=== PATIENT | female | born 1945 | race Caucasian/White ===

== ENCOUNTER 2017-05-19 17:47 | Emergency (ER) | payer MEDICARE, OTHER ==
[~2017-05-19] VITALS: Ht 149.9 cm; Wt 54.4 kg
[~2017-05-19 17:47] MED LIST: ALEN70TA3 PO; CALC1TAB PO; CEPH-264 PO; FERR-26 PO; GLIP5TAB10 PO; Hydrocodone/Acetaminophen PO; LISI10TA2 PO; LOPE2CAP PO; METF500T9 PO; METO100T7 PO; [UNRECOGNIZED DRUG - CODE] PO
[2017-05-19 18:00] VITALS: BP 165/169
--- NOTE | 2017-05-19 19:01 | PHYS DOC ---
Past Medical History Past Medical History: Arthritis, Diabetes-Type II, High Cholesterol, Hypertension Additional Past Medical Histor: MR, osteoporosis Past Surgical History: Cholecystectomy, Hip Replacement Alcohol Use: None Drug Use: None Adult General Chief Complaint Chief Complaint: MECHANICAL FALL HPI HPI She is a pleasant 72-year-old female who sustained a head injury secondary to a fall from a seated position. Patient was at the [facility] when she went to the restroom she is normally supposed to ask for assistance when getting up she temperature rise and fell forward striking her head against the wall. There is no loss of conscious, the fall was witnessed by staff, she sustained a small laceration to the left frontal forehead. She denies any headache, neck pain, focal neurologic deficit. Patient has no nausea, no vomiting, no change in mental status. Review of Systems Review of Systems Constitutional: Denies fever or chills [] Eyes: Denies change in visual acuity, redness, or eye pain [] HENT: Denies nasal congestion or sore throat [] Respiratory: Denies cough or shortness of breath [] Cardiovascular: No additional information not addressed in HPI [] GI: Denies abdominal pain, nausea, vomiting, bloody stools or diarrhea [] : Denies dysuria or hematuria [] Musculoskeletal: Denies back pain or joint pain [] Integument: Denies rash or skin lesions she did sustain a small laceration to the [place] on the left. [] Neurologic: Denies headache, focal weakness or sensory changes [] Endocrine: Denies polyuria or polydipsia [] All other systems were reviewed and found to be within normal limits, except as documented in this note. Allergies Allergies Allergies Coded Allergies Type Severity Reaction Last Updated Verified No Known Drug Allergies 04/29/15 No Physical Exam Physical Exam Patient's vital signs demonstrate a hypertensive patient otherwise normal. Constitutional: He is thin and cachectic she is no acute distress no active breathing problems.. [] HENT: Normocephalic, as well approximated small laceration at the scalp line on the left upper forehead. It measures about 1.1 cm in length. It is shallow there is no galeal involvement, no step-offs, minimal active bleeding with no foreign body sensation. Bilateral external ears normal, oropharynx moist, no oral exudates, nose normal. Patient's TMs bilaterally have a significant amount of cerumen. There is no evidence of hemotympanum.[] Eyes: PERRLA, EOMI, conjunctiva normal, no discharge. [] Neck: Normal range of motion, no tenderness, supple, no stridor. No midline tenderness to palpation.[] Cardiovascular:Heart rate regular rhythm, no murmur [] Lungs & Thorax: Bilateral breath sounds clear to auscultation [] Abdomen: Bowel sounds normal, soft, no tenderness, no masses, no pulsatile masses. [] Skin: Warm, dry, no erythema, no rash. He has areas of contusion and multiple stages of healing. [] Back: No tenderness, Extremities: No tenderness, no cyanosis, no clubbing, ROM intact, no edema. [] Neurologic: Alert and oriented X 3, normal motor function, normal sensory function, no focal deficits noted. She has no specific complaints of tenderness to palpation over a joints. She is at baseline according to the staff at the bedside.[] Psychologic: Affect normal, judgement normal, mood normal. [] Current Patient Data Vital Signs Vital Signs Date Time Temp Pulse Resp B/P (MAP) Pulse Ox O2 Delivery O2 Flow Rate FiO2 05/19/17 17:47 98.1 72 18 165/69 (101) 100 Room Air 98.1 EKG EKG [] Radiology/Procedures Radiology/Procedures [] [facility] [address], [place] [id number] IMAGING REPORT Signed PATIENT: KOFI JEWELL ACCOUNT: [id number] : 1945 LOCATION: ER AGE: 72 SEX: F EXAM STATUS: REG ER ORD. PHYSICIAN: JOHNATHAN GEE MD REASON: fall PROCEDURE: CT HEAD WO CONTRAST CT head without contrast 05/19/2017 Clinical indication: Fall with laceration to the left for head. COMPARISON: None. TECHNIQUE: Multiple CT images of the head were obtained without contrast according to standard protocol. *One or more of the following individualized dose reduction techniques were utilized for this examination: 1. Automated exposure control. 2. Adjustment of the mA and/or kV according to patient size. 3. Use of iterative reconstruction technique. FINDINGS: There is prominence of the ventricles and subarachnoid spaces compatible with mild generalized cerebral atrophy. No acute intracranial hemorrhage or extra-axial fluid collection. No midline shift. The basal cisterns are patent. Owusu-white matter interfaces are maintained. IMPRESSION: 1. No acute intracranial hemorrhage. 2. Mild generalized cerebral atrophy. Electronically signed by: Harjit Guillen MD (05/19/2017 8:31 PM) [facility] DICTATED and SIGNED BY: HARJIT GUILLEN MD DATE: 05/19/172029 CC: JOHNATHAN GEE MD; NO PCP ~ Course & Med Decision Making Course & Med Decision Making Pertinent Labs and Imaging studies reviewed. (See chart for details) []She presents with a small laceration to the forehead sustained after falling from a seated position. I wanted to complete a head CT, patient's mentation and neurologic status are baseline according to the staff at the bedside. Patient seems to be mentating well is hungry and prefer to go home as opposed to have any studies done. At this point the plan is to treat her wound with localized wound cleansing. Patient's tetanus shot is up-to-date, patient will have Steri- Strips applied to the wound to approximate it. I do not believe there is any skull fracture. Resting comfortably her wound on her for head. She had the wound cleansed with manual scrub and Betadine. She had the wound edges approximated with Steri- Strips after Mastisol was applied to the skin. Patient tolerated the procedure well without issue. CT scan of the head is still pending at this time 8:20 PM Time is now 851Patient tells me that their symptoms given during CC are improved. We reviewed labs and radiology reports with patient and any staff at the bedside patient's CT scan is negative, patient ready to go.. . Dragon Disclaimer Dragon Disclaimer This electronic medical record was generated, in whole or in part, using a voice recognition dictation system. Departure Departure Impression: Primary Impression: Closed head injury Additional Impression: Laceration of forehead Disposition: 01 HOME, SELF-CARE Condition: STABLE Patient Instructions: Head Injury, Adult Additional Instructions: discharge: I've spoken with the patient and/or caregivers. I've explained the patient's condition, diagnosis and treatment plan based on information available to me at this time. I've answered the patient's and/or caregivers questions and addressed any concerns. The patient and/or caregivers have a good understanding the patient's diagnosis, condition and treatment plan as can be expected at this point. Vital signs have been stabilized. The patient's condition is stable for discharge from the emergency department. The patient will pursue further outpatient evaluation with her primary care provider or other designated consulting physician as outlined in the discharge instructions. Patient and/or caregivers are agreeable to this plan of care and follow-up instructions have been explained in detail. The patient and/or caregivers have received these instructions in written format and expressed understanding of these discharge instructions. The patient and her caregivers are aware that if any significant change in condition or worsening of symptoms should prompt him to immediately return to this of the closest emergency department. If an emergent department is not readily available I would encourage him to call 911. Problem Qualifiers JOHNATHAN GEE MD May 19, 2017 19:01
--- NOTE | 2017-05-19 20:35 | RAD ---
CT head without contrast 05/19/2017 Clinical indication: Fall with laceration to the left for head. COMPARISON: None. TECHNIQUE: Multiple CT images of the head were obtained without contrast according to standard protocol. *One or more of the following individualized dose reduction techniques were utilized for this examination: 1. Automated exposure control. 2. Adjustment of the mA and/or kV according to patient size. 3. Use of iterative reconstruction technique. FINDINGS: There is prominence of the ventricles and subarachnoid spaces compatible with mild generalized cerebral atrophy. No acute intracranial hemorrhage or extra-axial fluid collection. No midline shift. The basal cisterns are patent. Owusu-white matter interfaces are maintained. IMPRESSION: 1. No acute intracranial hemorrhage. 2. Mild generalized cerebral atrophy. Electronically signed by: Amarjit Guillen MD (05/19/2017 8:31 PM) [facility]
== END 2017-05-19 21:11 | disposition home or self-care (01) ==
LOC: ER 17:47
DX: S01.81XA Laceration without foreign body of other part of head, initial encounter (principal); E78.00 Pure hypercholesterolemia, unspecified; E11.9 Type 2 diabetes mellitus without complications; I10 Essential (primary) hypertension; M81.0 Age-related osteoporosis without current pathological fracture; W18.09XA Striking against other object with subsequent fall, initial encounter; Y93.89 Activity, other specified; Y99.8 Other external cause status; Y92.121 Bathroom in nursing home as the place of occurrence of the external cause
CPT/HCPCS: 70450; 99284-25

== ENCOUNTER 2017-06-07 03:07 | Inpatient (IN) | payer MEDICARE, OTHER ==
[~2017-06-07] VITALS: Ht 152.4 cm; Wt 50.1 kg
[2017-06-07 04:05] LABS: BILIRUBIN,URINE NEGATIVE (NEG); GLUCOSE,URINE 250 mg/dL (NEG); NITRITE,URINE NEGATIVE (NEG); PROTEIN,URINE NEGATIVE (NEG-TRACE)
[2017-06-07 04:20] LABS: BACTERIA,URINE MANY /HPF (0-FEW); RBC,URINE OCC /HPF (0-2); SQUAMOUS EPITHELIAL CELL,UR MOD /LPF; WBC,URINE TNTC /HPF (0-4)
[2017-06-07 04:58] LABS: BASO # 0.1 x10^3/uL (0.0-0.2); BASO % 1 % (0-3); EOS % 1 % (0-3); HEMATOCRIT 34.8 % (36.0-47.0); HEMOGLOBIN 11.7 g/dL (12.0-15.5); LYMPH # 0.4 x10^3/uL (1.0-4.8); LYMPH % 5 % (24-48); MEAN CORPUSCULAR HEMOGLOBIN 33 pg (25-35); MEAN CORPUSCULAR HGB CONC 34 g/dL (31-37); MEAN CORPUSCULAR VOLUME 98 fL (79-100); MONO % 5 % (0-9); NEUT % 88 % (31-73); PLATELET COUNT 209 x10^3/uL (140-400); RED BLOOD COUNT 3.57 x10^6/uL (3.50-5.40); RED CELL DISTRIBUTION WIDTH 13.3 % (11.5-14.5); WHITE BLOOD COUNT 7.4 x10^3/uL (4.0-11.0)
[2017-06-07 05:03] LABS: INR 1.1 (0.8-1.1); PROTHROMBIN TIME PATIENT 13.2 SEC (11.7-14.0)
[2017-06-07 05:09] LABS: CALCIUM 10.3 mg/dL (8.5-10.1); CREATININE 1.7 mg/dL (0.6-1.0); GFR 29.6
[2017-06-07 05:15] LABS: ALBUMIN 2.9 g/dL (3.4-5.0); ALBUMIN/GLOBULIN RATIO 0.6 (1.0-1.7); TOTAL BILIRUBIN 0.2 mg/dL (0.2-1.0); TOTAL PROTEIN 7.6 g/dL (6.4-8.2)
[2017-06-07] MEDS ORDERED: IV NORMAL SALINE 1000ML BAG 1,000 ML IV ONE (06:00)
[2017-06-07] MEDS ORDERED: IPRATRPIUM/ALBUTEROL 0.5/2.5MG 3 ML NEBU. NEB ONE (06:00)
[2017-06-07 06:04] LABS: OBC FLU VALID
--- NOTE | 2017-06-07 06:09 | PHYS DOC ---
Past Medical History Past Medical History: Arthritis, Diabetes-Type II, High Cholesterol, Hypertension Additional Past Medical Histor: MR, osteoporosis Past Surgical History: Cholecystectomy, Hip Replacement Alcohol Use: None Drug Use: None Adult General Chief Complaint Chief Complaint: HEMATEMESIS/VOMITING BLOOD HPI HPI Patient is a 72 year old female with a history of mental retardation, diabetes , hypertension who presents here today secondary to an episode of vomiting of blood at the facility. Upon arrival to the ER the patient is in good spirits without any complaints. Patient not complaining of any abdominal pain. Patient is a very poor historian however. Patient denies any fevers shakes chills. Patient is complaining of coughing a lot over the last couple days. History is extremely limited secondary to the patient's mental retardation and likely dementia. Review of systems: Unless obtainable secondary to the patient's limited capacity to answer questions. Physical exam Constitutional: Well developed, well nourished, no acute distress, non-toxic appearance. HENT: Normocephalic, atraumatic, bilateral external ears normal, oropharynx moist, no oral exudates, nose normal. Eyes: PERRLA, EOMI, conjunctiva normal, no discharge. Neck: Normal range of motion, no tenderness, supple, no stridor. Cardiovascular:Heart rate regular rhythm, Lungs & Thorax: Bilateral breath sounds clear to auscultation Abdomen: Nondistended. Skin: Warm, dry, no erythema, no rash. Back: No tenderness, no CVA tenderness. Extremities: No tenderness, no cyanosis, no clubbing, ROM intact, no edema. Neurologic: Alert no focal deficits noted. Psychologic: Affect normal, judgement normal, mood normal. ER physical exam is significant for: Patient had a UA that was consistent with urinary tract infection. Patient to numerous to count WBCs. (CMP was consistent with dehydration with hypernatremia as well as acute renal insufficiency with an elevated BUN/creatinine. Assessment and plan: 1. 72-year-old female who presents here today secondary to vomiting of blood at the facility however patient is noted to have a hypernatremia, a urinary tract infection. Throughout the patient's ER visit she has been having a persistent cough. Patient's chest x-ray is clear without any evidence of aspiration infiltrates or effusions. Patient's KUB did not reveal any acute infection although she had a distended gastric bubble. Given the patient's episode of vomiting, or UTI, her acute renal insufficiency, and her hypernatremia I feel the patient be best served with admission to the hospital for hydration and IV antibiotics. Patient's hemoglobin had this time be monitored to make sure that it is not dropping and her history of vomiting of blood. Current Medications Current Medications Current Medications Medications (Trade) Dose Ordered Sig/Verito Start Time Stop Time Status Last Admin Dose Admin Albuterol/ Ipratropium (Duoneb) 3 ml 1X ONCE 06/07/17 06:00 06/07/17 06:01 06/07/17 05:55 3 ML Ceftriaxone Sodium 50 ml @ 100 mls/hr 1X ONCE 06/07/17 06:30 06/07/17 06:59 Sodium Chloride 1,000 ml @ 1,000 mls/hr 1X ONCE 06/07/17 06:00 06/07/17 06:59 Allergies Allergies Allergies Coded Allergies Type Severity Reaction Last Updated Verified No Known Drug Allergies 04/29/15 No Current Patient Data Vital Signs Vital Signs Date Time Temp Pulse Resp B/P (MAP) Pulse Ox O2 Delivery O2 Flow Rate FiO2 06/07/17 05:30 58 22 130/63 (85) 94 06/07/17 03:35 93.8 Room Air 93.8 Lab Values Laboratory Tests Test 06/07/17 03:30 06/07/17 04:38 06/07/17 05:22 Urine Collection Type U cath Urine Color Yellow Urine Clarity Cloudy Urine pH 6.0 Urine Specific [place] 1.020 Urine Protein Negative mg/dL (NEG-TRACE) Urine Glucose (UA) 250 mg/dL (NEG) Urine Ketones (Stick) Negative mg/dL (NEG) Urine Blood Trace (NEG) Urine Nitrite Negative (NEG) Urine Bilirubin Negative (NEG) Urine Urobilinogen Dipstick 1.0 mg/dL (0.2 mg/dL) Urine Leukocyte Esterase Large (NEG) Urine RBC Occ /HPF (0-2) Urine WBC Tntc /HPF (0-4) Urine Squamous Epithelial Cells Mod /LPF Urine Bacteria Many /HPF (0-FEW) Urine Hyaline Casts Few /HPF Urine Mucus Mod /LPF White Blood Count 7.4 x10^3/uL (4.0-11.0) Red Blood Count 3.57 x10^6/uL (3.50-5.40) Hemoglobin 11.7 g/dL (12.0-15.5) L Hematocrit 34.8 % (36.0-47.0) L Mean Corpuscular Volume 98 fL (79-100) Mean Corpuscular Hemoglobin 33 pg (25-35) Mean Corpuscular Hemoglobin Concent 34 g/dL (31-37) Red Cell Distribution Width 13.3 % (11.5-14.5) Platelet Count 209 x10^3/uL (140-400) Neutrophils (%) (Auto) 88 % (31-73) H Lymphocytes (%) (Auto) 5 % (24-48) L Monocytes (%) (Auto) 5 % (0-9) Eosinophils (%) (Auto) 1 % (0-3) Basophils (%) (Auto) 1 % (0-3) Neutrophils # (Auto) 6.5 x10^3uL (1.8-7.7) Lymphocytes # (Auto) 0.4 x10^3/uL (1.0-4.8) L Monocytes # (Auto) 0.4 x10^3/uL (0.0-1.1) Eosinophils # (Auto) 0.1 x10^3/uL (0.0-0.7) Basophils # (Auto) 0.1 x10^3/uL (0.0-0.2) Platelet Estimate Pending Prothrombin Time 13.2 SEC (11.7-14.0) Prothrombin Time INR 1.1 (0.8-1.1) Sodium Level 151 mmol/L (136-145) H Potassium Level 4.0 mmol/L (3.5-5.1) Chloride Level 107 mmol/L (98-107) Carbon Dioxide Level 36 mmol/L (21-32) H Anion Gap 8 (6-14) Blood Urea Nitrogen 49 mg/dL (7-20) H Creatinine 1.7 mg/dL (0.6-1.0) H Estimated GFR (Cockcroft-Gault) 29.6 BUN/Creatinine Ratio 29 (6-20) H Glucose Level 232 mg/dL (70-99) H Calcium Level 10.3 mg/dL (8.5-10.1) H Total Bilirubin 0.2 mg/dL (0.2-1.0) Aspartate Amino Transferase (AST) 17 U/L (15-37) Alanine Aminotransferase (ALT) 25 U/L (14-59) Alkaline Phosphatase 192 U/L (46-116) H Troponin I Quantitative < 0.017 ng/mL (0.000-0.055) Total Protein 7.6 g/dL (6.4-8.2) Albumin 2.9 g/dL (3.4-5.0) L Albumin/Globulin Ratio 0.6 (1.0-1.7) L Lipase 354 U/L (73-393) Influenza Type A Antigen Negative (NEGATIVE) Influenza Type B Antigen Negative (NEGATIVE) Laboratory Tests 06/07/17 04:38 Laboratory Tests 06/07/17 04:38 EKG EKG [] Radiology/Procedures Radiology/Procedures [] Course & Med Decision Making Course & Med Decision Making Pertinent Labs and Imaging studies reviewed. (See chart for details) [] Dragon Disclaimer Dragon Disclaimer This electronic medical record was generated, in whole or in part, using a voice recognition dictation system. Departure Departure Impression: Primary Impression: Urinary tract infection Additional Impressions: Dehydration Hypernatremia Disposition: 09 ADMITTED INPATIENT Admitting Physician: Maximiliano Underwood Condition: STABLE Referrals: NO PCP (PCP) Problem Qualifiers ZAYRA CHESTER MD Jun 07, 2017 06:09
[2017-06-07] MEDS ORDERED: ACETAMINOPHEN 325 MG TABLET. PO PRN (06:15)
[2017-06-07] MEDS ORDERED: ONDANSETRON PF 4 MG/2 ML VIAL. IV PRN (06:15)
[2017-06-07 07:40] LABS: % EOS 1 % (0-5)
[2017-06-07 07:41] LABS: PLT ESTIMATE ADEQUATE (ADEQUATE)
[2017-06-07 08:05] VITALS: BP 152/49
[2017-06-07] MEDS ORDERED: AZIT250T PO (08:35)
[2017-06-07] MEDS ORDERED: NIFE20CA PO (08:35)
[2017-06-07] MEDS ORDERED: BENA20TA2 PO (08:35)
[2017-06-07] MEDS ORDERED: HYDR25TA9 PO (08:36)
[2017-06-07] MEDS ORDERED: IV NORMAL SALINE 1000ML BAG 1,000 ML IV SCH (09:27)
--- NOTE | 2017-06-07 09:30 | RAD ---
KUB Clinical Indication: HEMATEMESIS Comparison: None. Findings: The stomach is distended with air. There is scattered air and stool in the colon. No dilated small bowel. Degenerative changes in the lower thoracic spine. Degenerative arthropathy of the hips. IMPRESSION: 1. Gaseous distention of the stomach. Gastric outlet obstruction cannot be excluded. 2. Otherwise nonobstructive bowel gas pattern.
--- NOTE | 2017-06-07 09:56 | RAD ---
AP PORTABLE CHEST Clinical Indication: cough. Comparison: AP chest 04/29/2015. Findings: Atherosclerotic thoracic aorta. Stable cardiomegaly. Lungs are clear. There is no pneumothorax. No pleural effusion is appreciated. Degenerative endplate spurring in the thoracic spine. Stable hardware of the proximal left humerus. IMPRESSION: No acute cardiopulmonary process.
[2017-06-07] MEDS ORDERED: metFORMIN XR 500 MG TAB.ER.24H PO SCH (10:00)
--- NOTE | 2017-06-07 11:14 | EKG ---
[facility] [address] [place] [id number] Test Date: 2017-06-07 Test Time: 04:08:42 Pat Name: KOFI JEWELL Department: Room: [facility] Gender: F [employer] Operator: : 1945 Requested By: ZAYRA CHESTER Order Number: [id number] Reading MD: Quoc Walker Measurements Intervals [place] Rate: 58 P: 0 DC: 142 QRS: -15 QRSD: 98 T: 49 QT: 478 QTc: 473 Interpretive Statements SINUS RHYTHM LEFTWARD AXIS NON SPECIFIC T ABNORMALITY PROLONGED QT BORDERLINE ECG No previous ECG available for comparison Electronically Signed On 06-19-2017 16:36:02 FIELD REPRESENTATIVES DIRECTOR by Quoc Walker
--- NOTE | 2017-06-07 11:16 | HP ---
ADMIT DATE: 06/07/2017 CHIEF COMPLAINT: Bloody emesis. HISTORY OF PRESENT ILLNESS AND HOSPITAL COURSE: This patient is a 72-year-old female who is significantly mentally handicapped and lives in a jail, has underlying medical issues of diabetes, hypertension, came to the hospital with a story of bloody vomitus. The patient was stable during ER evaluation with no evidence of hemoptysis and no significant complaints, although the patient is a limited and poor historian due to mental handicap. The patient had stable hemoglobin, but showed evidence of significant dehydration with BUN of 49 and creatinine of 1.7. Due to inability to care for herself and suspected [id number] renal failure, the patient was admitted for IV fluids and antibiotic treatment. The patient was on antibiotics due to evidence of UTI on urine specimen. PAST MEDICAL HISTORY: Significant for: 1. Type 2 diabetes. 2. Hypertension. 3. Osteoporosis. 4. Significant mental retardation. PAST SURGICAL HISTORY: Significant for cholecystectomy. SOCIAL HISTORY: The patient does not smoke or use alcohol. She lives in a jail with mentally handicapped individuals and ongoing assistance from caregivers. FAMILY HISTORY: Noncontributory. REVIEW OF SYSTEMS: One evidence of hematemesis with no recurrence and stable hemoglobin. No evidence of cough, congestion, fever. PHYSICAL EXAMINATION: GENERAL: This is a thin female who is noted to be in a position in her bed. She is responsive to questions and stimulations, but has no meaningful responses to questions, although states she does not have pain. She is pleasant, but has very poor eye contact. HEENT: Reveals poor dentition. NECK: Supple. CARDIAC: Regular rate and rhythm. LUNGS: Clear. She is markedly kyphotic. ABDOMEN: Soft and nontender. EXTREMITIES: Exhibited 1+ pulses bilaterally with 2+ nonpitting edema and mildly tender to palpation. NEUROLOGIC: Showed no unilateral findings. ASSESSMENT: 1. [id number]-iicfsya renal failure. 2. Moderate protein malnutrition. 3. Urinary tract infection. 4. Isolated episode of hematemesis. PLAN: To proceed with IV fluids and antibiotics. PT and OT modalities and monitor for further bleeding. We will consider GI workup as an outpatient if her current symptoms occur or serial hemoglobins deem appropriate. SHAMAR FLETCHER MD DR: ZAC/humberto JOB#: [id number] / [id number]
[2017-06-07 11:25] VITALS: BP 148/61
[2017-06-07] MEDS: INSULIN ASPART 300 UNITS/3 ML INSULN.PEN SQ SCH ×3 (11:30→21:00)
[2017-06-07] MEDS: METOPROLOL TART IMMED RELEASE 50 MG TABLET. PO SCH ×2 (12:33→21:00)
[2017-06-07] MEDS: FERROUS SULFATE 325 MG TABLET. PO SCH (12:34)
[2017-06-07] MEDS: LISINOPRIL 10 MG TABLET PO SCH (12:34)
[2017-06-07] MEDS: hydroCHLOROthiazide 25 MG TABLET PO SCH (12:34)
[2017-06-07] MEDS: ENOXAPARIN 30 MG/0.3 ML SYRINGE. SQ SCH (12:35)
[2017-06-07 15:04] VITALS: BP 121/46
[2017-06-07] MEDS ORDERED: glipiZIDE 5 MG TABLET PO SCH (17:00)
[2017-06-07] MEDS ORDERED: DEXTROSE 50% 25 GM / 50ML DISP.SYRIN. IV ONE ×3 (17:24→18:00)
[2017-06-07] MEDS ORDERED: DEXTROSE 50% 25 GM / 50ML DISP.SYRIN. IV PRN (17:30)
[2017-06-07 20:41] VITALS: BP 100/49
[2017-06-07 22:29] VITALS: BP 100/35
[2017-06-07 22:30] VITALS: BP 107/44
[2017-06-08 03:30] VITALS: BP 93/54
[2017-06-08 04:28] LABS: BASO % 1 % (0-3); EOS % 1 % (0-3); HEMATOCRIT 27.1 % (36.0-47.0); LYMPH # 1.3 x10^3/uL (1.0-4.8); LYMPH % 16 % (24-48); MEAN CORPUSCULAR HEMOGLOBIN 33 pg (25-35); MEAN CORPUSCULAR HGB CONC 33 g/dL (31-37); MEAN CORPUSCULAR VOLUME 98 fL (79-100); MONO % 6 % (0-9); NEUT % 76 % (31-73); PLATELET COUNT 170 x10^3/uL (140-400); RED BLOOD COUNT 2.77 x10^6/uL (3.50-5.40); RED CELL DISTRIBUTION WIDTH 13.6 % (11.5-14.5); WHITE BLOOD COUNT 8.3 x10^3/uL (4.0-11.0)
[2017-06-08 05:45] LABS: CALCIUM 8.6 mg/dL (8.5-10.1); CREATININE 1.5 mg/dL (0.6-1.0); GFR 34.2; POTASSIUM 3.7 mmol/L (3.5-5.1)
[2017-06-08 07:07] VITALS: BP 93/54
[2017-06-08] MEDS: INSULIN ASPART 300 UNITS/3 ML INSULN.PEN SQ SCH ×4 (07:30→21:00)
[2017-06-08] MEDS ORDERED: glipiZIDE 5 MG TABLET PO SCH ×2 (08:00→09:30)
[2017-06-08] MEDS: hydroCHLOROthiazide 25 MG TABLET PO SCH (09:00)
[2017-06-08] MEDS: METOPROLOL TART IMMED RELEASE 50 MG TABLET. PO SCH ×2 (09:00→21:00)
[2017-06-08] MEDS: FERROUS SULFATE 325 MG TABLET. PO SCH (09:00)
[2017-06-08] MEDS: LISINOPRIL 10 MG TABLET PO SCH (09:00)
[2017-06-08] MEDS ORDERED: BENAZEPRIL HCL PO SCH (09:00)
[2017-06-08] MEDS: ENOXAPARIN 30 MG/0.3 ML SYRINGE. SQ SCH (09:45)
[2017-06-08 10:53] VITALS: BP 105/39
--- NOTE | 2017-06-08 12:30 | PDOC ---
PROGRESS NOTES Chief Complaint Chief Complaint Gi Bleed with Hematemesis Dehydration UTI ARF/CRF Malnutrition Type 2 diabetes. Hypertension. Osteoporosis. Mental retardation. Cholecystectomy. History of Present Illness History of Present Illness Pt resting with DARINEL LATHAM RN this am We were asked to assume care by Dr Underwood HgB is trending down, so I just consulted GI Vitals Vitals Vital Signs Date Time Temp Pulse Resp B/P (MAP) Pulse Ox O2 Delivery O2 Flow Rate FiO2 06/08/17 10:53 98.8 80 16 105/39 (61) 93 Room Air 98.8 Physical Exam General: Other (Minimal responsiveness (Chronic)) Heart: Regular rate, Normal S1 Lungs: Clear Abdomen: Normal bowel sounds, Soft Extremities: No clubbing, No cyanosis Skin: No rashes, No breakdown Labs LABS Laboratory Tests Test 06/07/17 17:06 06/07/17 17:13 06/07/17 17:52 06/07/17 21:58 Glucose (Fingerstick) 29 mg/dL (70-99) 23 mg/dL (70-99) 168 mg/dL (70-99) 66 mg/dL (70-99) Test 06/07/17 22:09 06/07/17 23:00 06/08/17 02:55 06/08/17 04:00 Glucose (Fingerstick) 63 mg/dL (70-99) 89 mg/dL (70-99) 62 mg/dL (70-99) White Blood Count 8.3 x10^3/uL (4.0-11.0) Red Blood Count 2.77 x10^6/uL (3.50-5.40) Hemoglobin 9.0 g/dL (12.0-15.5) Hematocrit 27.1 % (36.0-47.0) Mean Corpuscular Volume 98 fL (79-100) Mean Corpuscular Hemoglobin 33 pg (25-35) Mean Corpuscular Hemoglobin Concent 33 g/dL (31-37) Red Cell Distribution Width 13.6 % (11.5-14.5) Platelet Count 170 x10^3/uL (140-400) Neutrophils (%) (Auto) 76 % (31-73) Lymphocytes (%) (Auto) 16 % (24-48) Monocytes (%) (Auto) 6 % (0-9) Eosinophils (%) (Auto) 1 % (0-3) Basophils (%) (Auto) 1 % (0-3) Neutrophils # (Auto) 6.3 x10^3uL (1.8-7.7) Lymphocytes # (Auto) 1.3 x10^3/uL (1.0-4.8) Monocytes # (Auto) 0.5 x10^3/uL (0.0-1.1) Eosinophils # (Auto) 0.1 x10^3/uL (0.0-0.7) Basophils # (Auto) 0.0 x10^3/uL (0.0-0.2) Sodium Level 149 mmol/L (136-145) Potassium Level 3.7 mmol/L (3.5-5.1) Chloride Level 114 mmol/L (98-107) Carbon Dioxide Level 26 mmol/L (21-32) Anion Gap 9 (6-14) Blood Urea Nitrogen 39 mg/dL (7-20) Creatinine 1.5 mg/dL (0.6-1.0) Estimated GFR (Cockcroft-Gault) 34.2 Glucose Level 77 mg/dL (70-99) Calcium Level 8.6 mg/dL (8.5-10.1) Test 06/08/17 08:03 06/08/17 10:38 06/08/17 12:15 Glucose (Fingerstick) 55 mg/dL (70-99) 69 mg/dL (70-99) 55 mg/dL (70-99) Review of Systems Review of Systems Unobtainable Assessment and Plan Assessmemt and Plan Problems Medical Problems: (1) Dehydration Status: Acute (2) Hypernatremia Status: Acute (3) Urinary tract infection Status: Acute Gi Bleed with Hematemesis Dehydration UTI ARF/CRF Malnutrition Type 2 diabetes. Hypertension. Osteoporosis. Mental retardation. Cholecystectomy. Plan Consult GI PPI Home meds Follow HgB PTOT if possible? IV fluids Prognosis mcc guarded Problems: Comment Review of Relevant I have reviewed the following items negro (where applicable) has been applied. Labs Laboratory Tests Test 06/07/17 03:30 06/07/17 04:38 06/07/17 05:22 06/07/17 07:31 Urine Collection Type U cath Urine Color Yellow Urine Clarity Cloudy Urine pH 6.0 Urine Specific [place] 1.020 Urine Protein Negative mg/dL (NEG-TRACE) Urine Glucose (UA) 250 mg/dL (NEG) Urine Ketones (Stick) Negative mg/dL (NEG) Urine Blood Trace (NEG) Urine Nitrite Negative (NEG) Urine Bilirubin Negative (NEG) Urine Urobilinogen Dipstick 1.0 mg/dL (0.2 mg/dL) Urine Leukocyte Esterase Large (NEG) Urine RBC Occ /HPF (0-2) Urine WBC Tntc /HPF (0-4) Urine Squamous Epithelial Cells Mod /LPF Urine Bacteria Many /HPF (0-FEW) Urine Hyaline Casts Few /HPF Urine Mucus Mod /LPF White Blood Count 7.4 x10^3/uL (4.0-11.0) Red Blood Count 3.57 x10^6/uL (3.50-5.40) Hemoglobin 11.7 g/dL (12.0-15.5) Hematocrit 34.8 % (36.0-47.0) Mean Corpuscular Volume 98 fL (79-100) Mean Corpuscular Hemoglobin 33 pg (25-35) Mean Corpuscular Hemoglobin Concent 34 g/dL (31-37) Red Cell Distribution Width 13.3 % (11.5-14.5) Platelet Count 209 x10^3/uL (140-400) Neutrophils (%) (Auto) 88 % (31-73) Lymphocytes (%) (Auto) 5 % (24-48) Monocytes (%) (Auto) 5 % (0-9) Eosinophils (%) (Auto) 1 % (0-3) Basophils (%) (Auto) 1 % (0-3) Neutrophils # (Auto) 6.5 x10^3uL (1.8-7.7) Lymphocytes # (Auto) 0.4 x10^3/uL (1.0-4.8) Monocytes # (Auto) 0.4 x10^3/uL (0.0-1.1) Eosinophils # (Auto) 0.1 x10^3/uL (0.0-0.7) Basophils # (Auto) 0.1 x10^3/uL (0.0-0.2) Segmented Neutrophils % 86 % (35-66) Band Neutrophils % 1 % (0-9) Lymphocytes % 7 % (24-48) Monocytes % 5 % (0-10) Eosinophils % 1 % (0-5) Platelet Estimate Adequate (ADEQUATE) Prothrombin Time 13.2 SEC (11.7-14.0) Prothromb Time International Ratio 1.1 (0.8-1.1) Sodium Level 151 mmol/L (136-145) Potassium Level 4.0 mmol/L (3.5-5.1) Chloride Level 107 mmol/L (98-107) Carbon Dioxide Level 36 mmol/L (21-32) Anion Gap 8 (6-14) Blood Urea Nitrogen 49 mg/dL (7-20) Creatinine 1.7 mg/dL (0.6-1.0) Estimated GFR (Cockcroft-Gault) 29.6 BUN/Creatinine Ratio 29 (6-20) Glucose Level 232 mg/dL (70-99) Calcium Level 10.3 mg/dL (8.5-10.1) Total Bilirubin 0.2 mg/dL (0.2-1.0) Aspartate Amino Transf (AST/SGOT) 17 U/L (15-37) Alanine Aminotransferase (ALT/SGPT) 25 U/L (14-59) Alkaline Phosphatase 192 U/L (46-116) Troponin I Quantitative < 0.017 ng/mL (0.000-0.055) Total Protein 7.6 g/dL (6.4-8.2) Albumin 2.9 g/dL (3.4-5.0) Albumin/Globulin Ratio 0.6 (1.0-1.7) Lipase 354 U/L (73-393) Influenza Type A Antigen Negative (NEGATIVE) Influenza Type B Antigen Negative (NEGATIVE) Glucose (Fingerstick) 185 mg/dL (70-99) Test 06/07/17 10:38 06/07/17 17:06 06/07/17 17:13 06/07/17 17:52 Glucose (Fingerstick) 238 mg/dL (70-99) 29 mg/dL (70-99) 23 mg/dL (70-99) 168 mg/dL (70-99) Test 06/07/17 21:58 06/07/17 22:09 06/07/17 23:00 06/08/17 02:55 Glucose (Fingerstick) 66 mg/dL (70-99) 63 mg/dL (70-99) 89 mg/dL (70-99) 62 mg/dL (70-99) Test 06/08/17 04:00 06/08/17 08:03 06/08/17 10:38 06/08/17 12:15 White Blood Count 8.3 x10^3/uL (4.0-11.0) Red Blood Count 2.77 x10^6/uL (3.50-5.40) Hemoglobin 9.0 g/dL (12.0-15.5) Hematocrit 27.1 % (36.0-47.0) Mean Corpuscular Volume 98 fL (79-100) Mean Corpuscular Hemoglobin 33 pg (25-35) Mean Corpuscular Hemoglobin Concent 33 g/dL (31-37) Red Cell Distribution Width 13.6 % (11.5-14.5) Platelet Count 170 x10^3/uL (140-400) Neutrophils (%) (Auto) 76 % (31-73) Lymphocytes (%) (Auto) 16 % (24-48) Monocytes (%) (Auto) 6 % (0-9) Eosinophils (%) (Auto) 1 % (0-3) Basophils (%) (Auto) 1 % (0-3) Neutrophils # (Auto) 6.3 x10^3uL (1.8-7.7) Lymphocytes # (Auto) 1.3 x10^3/uL (1.0-4.8) Monocytes # (Auto) 0.5 x10^3/uL (0.0-1.1) Eosinophils # (Auto) 0.1 x10^3/uL (0.0-0.7) Basophils # (Auto) 0.0 x10^3/uL (0.0-0.2) Sodium Level 149 mmol/L (136-145) Potassium Level 3.7 mmol/L (3.5-5.1) Chloride Level 114 mmol/L (98-107) Carbon Dioxide Level 26 mmol/L (21-32) Anion Gap 9 (6-14) Blood Urea Nitrogen 39 mg/dL (7-20) Creatinine 1.5 mg/dL (0.6-1.0) Estimated GFR (Cockcroft-Gault) 34.2 Glucose Level 77 mg/dL (70-99) Calcium Level 8.6 mg/dL (8.5-10.1) Glucose (Fingerstick) 55 mg/dL (70-99) 69 mg/dL (70-99) 55 mg/dL (70-99) Laboratory Tests Test 06/07/17 17:06 06/07/17 17:13 06/07/17 17:52 06/07/17 21:58 Glucose (Fingerstick) 29 mg/dL (70-99) 23 mg/dL (70-99) 168 mg/dL (70-99) 66 mg/dL (70-99) Test 06/07/17 22:09 06/07/17 23:00 06/08/17 02:55 06/08/17 04:00 Glucose (Fingerstick) 63 mg/dL (70-99) 89 mg/dL (70-99) 62 mg/dL (70-99) White Blood Count 8.3 x10^3/uL (4.0-11.0) Red Blood Count 2.77 x10^6/uL (3.50-5.40) Hemoglobin 9.0 g/dL (12.0-15.5) Hematocrit 27.1 % (36.0-47.0) Mean Corpuscular Volume 98 fL (79-100) Mean Corpuscular Hemoglobin 33 pg (25-35) Mean Corpuscular Hemoglobin Concent 33 g/dL (31-37) Red Cell Distribution Width 13.6 % (11.5-14.5) Platelet Count 170 x10^3/uL (140-400) Neutrophils (%) (Auto) 76 % (31-73) Lymphocytes (%) (Auto) 16 % (24-48) Monocytes (%) (Auto) 6 % (0-9) Eosinophils (%) (Auto) 1 % (0-3) Basophils (%) (Auto) 1 % (0-3) Neutrophils # (Auto) 6.3 x10^3uL (1.8-7.7) Lymphocytes # (Auto) 1.3 x10^3/uL (1.0-4.8) Monocytes # (Auto) 0.5 x10^3/uL (0.0-1.1) Eosinophils # (Auto) 0.1 x10^3/uL (0.0-0.7) Basophils # (Auto) 0.0 x10^3/uL (0.0-0.2) Sodium Level 149 mmol/L (136-145) Potassium Level 3.7 mmol/L (3.5-5.1) Chloride Level 114 mmol/L (98-107) Carbon Dioxide Level 26 mmol/L (21-32) Anion Gap 9 (6-14) Blood Urea Nitrogen 39 mg/dL (7-20) Creatinine 1.5 mg/dL (0.6-1.0) Estimated GFR (Cockcroft-Gault) 34.2 Glucose Level 77 mg/dL (70-99) Calcium Level 8.6 mg/dL (8.5-10.1) Test 06/08/17 08:03 06/08/17 10:38 06/08/17 12:15 Glucose (Fingerstick) 55 mg/dL (70-99) 69 mg/dL (70-99) 55 mg/dL (70-99) Microbiology 06/07/17 Urine Culture - Preliminary, Resulted 06/07/17 Urine Culture Result 1 (ELVIS) - Preliminary, Resulted Medications Current Medications Albuterol/ Ipratropium (Duoneb) 3 ml 1X ONCE NEB Last administered on 05:55; Start 06/07/17 at 06:00; Stop 06/07/17 at 06:01; Status DC Sodium Chloride 1,000 ml @ 1,000 mls/hr 1X ONCE IV Last administered on 06/07 06:00; Start 06/07/17 at 06:00; Stop 06/07/17 at 06:59; Status DC Ceftriaxone Sodium 50 ml @ 100 mls/hr 1X ONCE IV Last administered on 06:28; Start 06/07/17 at 06:30; Stop 06/07/17 at 06:59; Status DC Ondansetron HCl (Zofran) 4 mg PRN Q8HRS PRN IV NAUSEA/VOMITING; Start at 06:15; Stop 06/08/17 at 06:14; Status DC Acetaminophen (Tylenol) 650 mg PRN Q4HRS PRN PO FEVER; Start 06/07/17 at 06:15 ; Stop 06/08/17 at 06:14; Status DC Ferrous Sulfate (Feosol) 325 mg DAILY PO Last administered on 06/07/17 12:34 ; Start 06/07/17 at 10:00 Glipizide (Glucotrol) 2.5 mg DAILYWSUP PO ; Start 06/07/17 at 17:00; Stop at 17:00; Status DC Glipizide (Glucotrol) 5 mg DAILYWBKFT PO ; Start 06/08/17 at 09:30; Stop 06/08 at 09:30; Status DC Hydrochlorothiazide (Hydrodiuril) 25 mg DAILY PO Last administered on 12:34; Start 06/07/17 at 10:00 Lisinopril (Prinivil) 10 mg DAILY PO Last administered on 06/07/17 12:34; Start 06/07/17 at 10:00 Metformin HCl (Glucophage Xr) 500 mg DAILYWBKFT PO ; Start 06/07/17 at 10:00; Status UNV Non-Formulary Medication 1 tab DAILY PO ; Start 06/08/17 at 09:00; Status UNV Metoprolol Tartrate (Lopressor) 100 mg BID PO Last administered on 06/07/17 12:33; Start 06/07/17 at 10:00 Nifedipine (Procardia Xl) 30 mg DAILY PO Last administered on 06/07/17 12:33 ; Start 06/07/17 at 10:00 Sodium Chloride 1,000 ml @ 100 mls/hr Q10H IV Last administered on 06/07/17 12:41; Start 06/07/17 at 09:27; Stop 06/07/17 at 19:26; Status DC Enoxaparin Sodium (Lovenox 30mg Syringe) 30 mg Q24H SQ Last administered on 12:35; Start 06/07/17 at 09:45 Insulin Aspart (NovoLOG) 0-12 UNITS QIDACHS SQ Last administered on 06/07/17 11:30; Start 06/07/17 at 11:30 Glipizide (Glucotrol) 5 mg BIDBFRMEAL PO ; Start 06/08/17 at 08:00; Stop 06/08 at 08:52; Status DC Dextrose (Dextrose 50%-Water Syringe) 12.5 gm PRN Q15MIN PRN IV SEE COMMENTS; Start 06/07/17 at 17:30 Dextrose (Dextrose 50%-Water Syringe) 25 gm STK-MED ONCE IV ; Start 06/07/17 at 17:24; Stop 06/07/17 at 17:25; Status DC Dextrose (Dextrose 50%-Water Syringe) 25 gm 1X ONCE IV Last administered on t 17:10; Start 06/07/17 at 18:00; Stop 06/07/17 at 18:01; Status DC Dextrose (Dextrose 50%-Water Syringe) 25 gm 1X ONCE IV ; Start 06/07/17 at 18: 00; Stop 06/07/17 at 18:01; Status UNV Ceftriaxone Sodium (Rocephin) 1 gm Q24H IVP ; Start 06/08/17 at 13:00 Active Scripts Active [Hydrocodone/Acetaminophen] 1 TAB Tablet 1 Tab PO PRN Q6HRS PRN Keflex (Cephalexin) 500 Mg Capsule 1,000 Mg PO BID Reported Hydrochlorothiazide Tablet (Hydrochlorothiazide) 25 Mg Tablet 1 Tab PO DAILY Zithromax (Azithromycin) 250 Mg Tablet 250 Mg PO DAILY 1 Days Nifedipine 20 Mg Capsule 30 Mg PO DAILY Benazepril Hcl 20 Mg Tablet 1 Tab PO DAILY Pain Reliever-Fever Junior [employer] Administrator (Acetaminophen) 500 Mg/15 Ml Liquid 500 Mg PO Loperamide (Loperamide Hcl) 2 Mg Capsule 2 Mg PO Metformin Hcl Er (Metformin Hcl) 500 Mg Tab.er.24h 1 Tab PO Metoprolol Tartrate 100 Mg Tablet 100 Mg PO BID Lisinopril 10 Mg Tablet 10 Mg PO DAILY Glipizide 5 Mg Tablet 2.5 Mg PO QEVNG Glipizide 5 Mg Tablet 5 Mg PO DAILY Ferrous Sulfate 325 Mg Tablet 325 Mg PO DAILY Caltrate 600 + D Tablet (Calcium Carbonate/Vitamin D3) 1 Each Tablet 1 Each PO BID Fosamax (Alendronate Sodium) 70 Mg Tablet 70 Mg PO WEEKLY Vitals/I & O Vital Sign - Last 24 Hours 06/07/17 06/07/17 06/07/17 06/07/17 12:33 12:33 12:34 15:04 Temp 97.7 97.7 Pulse 82 82 82 61 Resp 16 B/P (MAP) 148/61 148/61 148/61 121/46 (71) Pulse Ox 97 O2 Delivery Room Air 06/07/17 06/07/17 06/07/1717 20:00 20:41 21:00 22:29 Temp 99.1 98.6 99.1 98.6 Pulse 68 74 76 Resp 18 18 B/P (MAP) 100/49 (66) 100/35 100/35 (56) Pulse Ox 100 97 O2 Delivery Room Air Room Air Room Air 06/07/17 06/08/17 06/08/17 06/08/17 22:30 03:30 07:07 09:00 Temp 98.5 98.5 98.5 98.5 Pulse 81 86 86 80 Resp 18 B/P (MAP) 107/44 (65) 93/54 (67) 93/54 (67) 105/39 Pulse Ox 97 97 O2 Delivery Room Air Room Air 06/08/17 06/08/17 06/08/17 09:00 09:00 10:53 Temp 98.8 98.8 Pulse 80 80 80 Resp 16 B/P (MAP) 105/39 105/39 105/39 (61) Pulse Ox 93 O2 Delivery Room Air Intake and Output 06/07/17 06/07/17 06/08/17 15:00 23:00 07:00 Intake Total 100 ml 240 ml Output Total 2 ml Balance 98 ml 240 ml ANTONY PERSONL K III DO Jun 08, 2017 12:30
[2017-06-08 14:41] VITALS: BP 102/41
--- NOTE | 2017-06-08 15:36 | PDOC2 ---
CONSULT Date of Consult Date of Consult DATE: 06/08/17 TIME: 15:34 Reason for Consult Reason for Consult: Coffee ground emesis/anemia Current Problem List Problem List Problems Medical Problems: (1) Dehydration Status: Acute (2) Hypernatremia Status: Acute (3) Urinary tract infection Status: Acute Current Medications Current Medications Current Medications Albuterol/ Ipratropium (Duoneb) 3 ml 1X ONCE NEB Last administered on 05:55; Start 06/07/17 at 06:00; Stop 06/07/17 at 06:01; Status DC Sodium Chloride 1,000 ml @ 1,000 mls/hr 1X ONCE IV Last administered on 06/07 06:00; Start 06/07/17 at 06:00; Stop 06/07/17 at 06:59; Status DC Ceftriaxone Sodium 50 ml @ 100 mls/hr 1X ONCE IV Last administered on 06:28; Start 06/07/17 at 06:30; Stop 06/07/17 at 06:59; Status DC Ondansetron HCl (Zofran) 4 mg PRN Q8HRS PRN IV NAUSEA/VOMITING; Start at 06:15; Stop 06/08/17 at 06:14; Status DC Acetaminophen (Tylenol) 650 mg PRN Q4HRS PRN PO FEVER; Start 06/07/17 at 06:15 ; Stop 06/08/17 at 06:14; Status DC Ferrous Sulfate (Feosol) 325 mg DAILY PO Last administered on 06/07/17 12:34 ; Start 06/07/17 at 10:00 Glipizide (Glucotrol) 2.5 mg DAILYWSUP PO ; Start 06/07/17 at 17:00; Stop at 17:00; Status DC Glipizide (Glucotrol) 5 mg DAILYWBKFT PO ; Start 06/08/17 at 09:30; Stop 06/08 at 09:30; Status DC Hydrochlorothiazide (Hydrodiuril) 25 mg DAILY PO Last administered on 12:34; Start 06/07/17 at 10:00 Lisinopril (Prinivil) 10 mg DAILY PO Last administered on 06/07/17 12:34; Start 06/07/17 at 10:00 Metformin HCl (Glucophage Xr) 500 mg DAILYWBKFT PO ; Start 06/07/17 at 10:00; Status UNV Non-Formulary Medication 1 tab DAILY PO ; Start 06/08/17 at 09:00; Status UNV Metoprolol Tartrate (Lopressor) 100 mg BID PO Last administered on 06/07/17 12:33; Start 06/07/17 at 10:00 Nifedipine (Procardia Xl) 30 mg DAILY PO Last administered on 06/07/17 12:33 ; Start 06/07/17 at 10:00 Sodium Chloride 1,000 ml @ 100 mls/hr Q10H IV Last administered on 06/07/17 12:41; Start 06/07/17 at 09:27; Stop 06/07/17 at 19:26; Status DC Enoxaparin Sodium (Lovenox 30mg Syringe) 30 mg Q24H SQ Last administered on 12:35; Start 06/07/17 at 09:45 Insulin Aspart (NovoLOG) 0-12 UNITS QIDACHS SQ Last administered on 06/07/17 11:30; Start 06/07/17 at 11:30 Glipizide (Glucotrol) 5 mg BIDBFRMEAL PO ; Start 06/08/17 at 08:00; Stop 06/08 at 08:52; Status DC Dextrose (Dextrose 50%-Water Syringe) 12.5 gm PRN Q15MIN PRN IV SEE COMMENTS; Start 06/07/17 at 17:30 Dextrose (Dextrose 50%-Water Syringe) 25 gm STK-MED ONCE IV ; Start 06/07/17 at 17:24; Stop 06/07/17 at 17:25; Status DC Dextrose (Dextrose 50%-Water Syringe) 25 gm 1X ONCE IV Last administered on 17:10; Start 06/07/17 at 18:00; Stop 06/07/17 at 18:01; Status DC Dextrose (Dextrose 50%-Water Syringe) 25 gm 1X ONCE IV ; Start 06/07/17 at 18: 00; Stop 06/07/17 at 18:01; Status UNV Ceftriaxone Sodium (Rocephin) 1 gm Q24H IVP ; Start 06/08/17 at 13:00 Active Scripts Active [Hydrocodone/Acetaminophen] 1 TAB Tablet 1 Tab PO PRN Q6HRS PRN Keflex (Cephalexin) 500 Mg Capsule 1,000 Mg PO BID Reported Hydrochlorothiazide Tablet (Hydrochlorothiazide) 25 Mg Tablet 1 Tab PO DAILY Zithromax (Azithromycin) 250 Mg Tablet 250 Mg PO DAILY 1 Days Nifedipine 20 Mg Capsule 30 Mg PO DAILY Benazepril Hcl 20 Mg Tablet 1 Tab PO DAILY Pain Reliever-Fever Nuclear Reactor Technician (Acetaminophen) 500 Mg/15 Ml Liquid 500 Mg PO Loperamide (Loperamide Hcl) 2 Mg Capsule 2 Mg PO Metformin Hcl Er (Metformin Hcl) 500 Mg Tab.er.24h 1 Tab PO Metoprolol Tartrate 100 Mg Tablet 100 Mg PO BID Lisinopril 10 Mg Tablet 10 Mg PO DAILY Glipizide 5 Mg Tablet 2.5 Mg PO QEVNG Glipizide 5 Mg Tablet 5 Mg PO DAILY Ferrous Sulfate 325 Mg Tablet 325 Mg PO DAILY Caltrate 600 + D Tablet (Calcium Carbonate/Vitamin D3) 1 Each Tablet 1 Each PO BID Fosamax (Alendronate Sodium) 70 Mg Tablet 70 Mg PO WEEKLY Allergies Allergies: Coded Allergies: No Known Drug Allergies (Unverified , 04/29/15) Vitals VITALS Vital Signs Date Time Temp Pulse Resp B/P (MAP) Pulse Ox O2 Delivery O2 Flow Rate FiO2 06/08/17 14:41 99.1 78 17 102/41 (61) 95 Room Air 99.1 Labs Labs Laboratory Tests Test 06/07/17 03:30 06/07/17 04:38 06/07/17 05:22 06/07/17 07:31 Urine Collection Type U cath Urine Color Yellow Urine Clarity Cloudy Urine pH 6.0 Urine Specific [place] 1.020 Urine Protein Negative mg/dL (NEG-TRACE) Urine Glucose (UA) 250 mg/dL (NEG) Urine Ketones (Stick) Negative mg/dL (NEG) Urine Blood Trace (NEG) Urine Nitrite Negative (NEG) Urine Bilirubin Negative (NEG) Urine Urobilinogen Dipstick 1.0 mg/dL (0.2 mg/dL) Urine Leukocyte Esterase Large (NEG) Urine RBC Occ /HPF (0-2) Urine WBC Tntc /HPF (0-4) Urine Squamous Epithelial Cells Mod /LPF Urine Bacteria Many /HPF (0-FEW) Urine Hyaline Casts Few /HPF Urine Mucus Mod /LPF White Blood Count 7.4 x10^3/uL (4.0-11.0) Red Blood Count 3.57 x10^6/uL (3.50-5.40) Hemoglobin 11.7 g/dL (12.0-15.5) Hematocrit 34.8 % (36.0-47.0) Mean Corpuscular Volume 98 fL (79-100) Mean Corpuscular Hemoglobin 33 pg (25-35) Mean Corpuscular Hemoglobin Concent 34 g/dL (31-37) Red Cell Distribution Width 13.3 % (11.5-14.5) Platelet Count 209 x10^3/uL (140-400) Neutrophils (%) (Auto) 88 % (31-73) Lymphocytes (%) (Auto) 5 % (24-48) Monocytes (%) (Auto) 5 % (0-9) Eosinophils (%) (Auto) 1 % (0-3) Basophils (%) (Auto) 1 % (0-3) Neutrophils # (Auto) 6.5 x10^3uL (1.8-7.7) Lymphocytes # (Auto) 0.4 x10^3/uL (1.0-4.8) Monocytes # (Auto) 0.4 x10^3/uL (0.0-1.1) Eosinophils # (Auto) 0.1 x10^3/uL (0.0-0.7) Basophils # (Auto) 0.1 x10^3/uL (0.0-0.2) Segmented Neutrophils % 86 % (35-66) Band Neutrophils % 1 % (0-9) Lymphocytes % 7 % (24-48) Monocytes % 5 % (0-10) Eosinophils % 1 % (0-5) Platelet Estimate Adequate (ADEQUATE) Prothrombin Time 13.2 SEC (11.7-14.0) Prothromb Time International Ratio 1.1 (0.8-1.1) Sodium Level 151 mmol/L (136-145) Potassium Level 4.0 mmol/L (3.5-5.1) Chloride Level 107 mmol/L (98-107) Carbon Dioxide Level 36 mmol/L (21-32) Anion Gap 8 (6-14) Blood Urea Nitrogen 49 mg/dL (7-20) Creatinine 1.7 mg/dL (0.6-1.0) Estimated GFR (Cockcroft-Gault) 29.6 BUN/Creatinine Ratio 29 (6-20) Glucose Level 232 mg/dL (70-99) Calcium Level 10.3 mg/dL (8.5-10.1) Total Bilirubin 0.2 mg/dL (0.2-1.0) Aspartate Amino Transf (AST/SGOT) 17 U/L (15-37) Alanine Aminotransferase (ALT/SGPT) 25 U/L (14-59) Alkaline Phosphatase 192 U/L (46-116) Troponin I Quantitative < 0.017 ng/mL (0.000-0.055) Total Protein 7.6 g/dL (6.4-8.2) Albumin 2.9 g/dL (3.4-5.0) Albumin/Globulin Ratio 0.6 (1.0-1.7) Lipase 354 U/L (73-393) Influenza Type A Antigen Negative (NEGATIVE) Influenza Type B Antigen Negative (NEGATIVE) Glucose (Fingerstick) 185 mg/dL (70-99) Test 06/07/17 10:38 06/07/17 17:06 06/07/17 17:13 06/07/17 17:52 Glucose (Fingerstick) 238 mg/dL (70-99) 29 mg/dL (70-99) 23 mg/dL (70-99) 168 mg/dL (70-99) Test 06/07/17 21:58 06/07/17 22:09 06/07/17 23:00 06/08/17 02:55 Glucose (Fingerstick) 66 mg/dL (70-99) 63 mg/dL (70-99) 89 mg/dL (70-99) 62 mg/dL (70-99) Test 06/08/17 04:00 06/08/17 08:03 06/08/17 10:38 06/08/17 12:15 White Blood Count 8.3 x10^3/uL (4.0-11.0) Red Blood Count 2.77 x10^6/uL (3.50-5.40) Hemoglobin 9.0 g/dL (12.0-15.5) Hematocrit 27.1 % (36.0-47.0) Mean Corpuscular Volume 98 fL (79-100) Mean Corpuscular Hemoglobin 33 pg (25-35) Mean Corpuscular Hemoglobin Concent 33 g/dL (31-37) Red Cell Distribution Width 13.6 % (11.5-14.5) Platelet Count 170 x10^3/uL (140-400) Neutrophils (%) (Auto) 76 % (31-73) Lymphocytes (%) (Auto) 16 % (24-48) Monocytes (%) (Auto) 6 % (0-9) Eosinophils (%) (Auto) 1 % (0-3) Basophils (%) (Auto) 1 % (0-3) Neutrophils # (Auto) 6.3 x10^3uL (1.8-7.7) Lymphocytes # (Auto) 1.3 x10^3/uL (1.0-4.8) Monocytes # (Auto) 0.5 x10^3/uL (0.0-1.1) Eosinophils # (Auto) 0.1 x10^3/uL (0.0-0.7) Basophils # (Auto) 0.0 x10^3/uL (0.0-0.2) Sodium Level 149 mmol/L (136-145) Potassium Level 3.7 mmol/L (3.5-5.1) Chloride Level 114 mmol/L (98-107) Carbon Dioxide Level 26 mmol/L (21-32) Anion Gap 9 (6-14) Blood Urea Nitrogen 39 mg/dL (7-20) Creatinine 1.5 mg/dL (0.6-1.0) Estimated GFR (Cockcroft-Gault) 34.2 Glucose Level 77 mg/dL (70-99) Calcium Level 8.6 mg/dL (8.5-10.1) Glucose (Fingerstick) 55 mg/dL (70-99) 69 mg/dL (70-99) 55 mg/dL (70-99) Laboratory Tests Test 06/07/17 17:06 06/07/17 17:13 06/07/17 17:52 06/07/17 21:58 Glucose (Fingerstick) 29 mg/dL (70-99) 23 mg/dL (70-99) 168 mg/dL (70-99) 66 mg/dL (70-99) Test 06/07/17 22:09 06/07/17 23:00 06/08/17 02:55 06/08/17 04:00 Glucose (Fingerstick) 63 mg/dL (70-99) 89 mg/dL (70-99) 62 mg/dL (70-99) White Blood Count 8.3 x10^3/uL (4.0-11.0) Red Blood Count 2.77 x10^6/uL (3.50-5.40) Hemoglobin 9.0 g/dL (12.0-15.5) Hematocrit 27.1 % (36.0-47.0) Mean Corpuscular Volume 98 fL (79-100) Mean Corpuscular Hemoglobin 33 pg (25-35) Mean Corpuscular Hemoglobin Concent 33 g/dL (31-37) Red Cell Distribution Width 13.6 % (11.5-14.5) Platelet Count 170 x10^3/uL (140-400) Neutrophils (%) (Auto) 76 % (31-73) Lymphocytes (%) (Auto) 16 % (24-48) Monocytes (%) (Auto) 6 % (0-9) Eosinophils (%) (Auto) 1 % (0-3) Basophils (%) (Auto) 1 % (0-3) Neutrophils # (Auto) 6.3 x10^3uL (1.8-7.7) Lymphocytes # (Auto) 1.3 x10^3/uL (1.0-4.8) Monocytes # (Auto) 0.5 x10^3/uL (0.0-1.1) Eosinophils # (Auto) 0.1 x10^3/uL (0.0-0.7) Basophils # (Auto) 0.0 x10^3/uL (0.0-0.2) Sodium Level 149 mmol/L (136-145) Potassium Level 3.7 mmol/L (3.5-5.1) Chloride Level 114 mmol/L (98-107) Carbon Dioxide Level 26 mmol/L (21-32) Anion Gap 9 (6-14) Blood Urea Nitrogen 39 mg/dL (7-20) Creatinine 1.5 mg/dL (0.6-1.0) Estimated GFR (Cockcroft-Gault) 34.2 Glucose Level 77 mg/dL (70-99) Calcium Level 8.6 mg/dL (8.5-10.1) Test 06/08/17 08:03 06/08/17 10:38 06/08/17 12:15 Glucose (Fingerstick) 55 mg/dL (70-99) 69 mg/dL (70-99) 55 mg/dL (70-99) Assessment/Plan Assessment/Plan Coffee ground emesis- with DM, GERD, gastroparesis, and/or pUD lead differential. Malignancy less likely. Plan serial Hg /transfusional support PPI therapy consider EGD if anemia worsens/bleeding resumes Full note dictated JUSTINA MARTÍNEZ MD Jun 08, 2017 15:35
[2017-06-08] MEDS: PANTOPRAZOLE 40 MG TABLET.DR. PO SCH (15:59)
[2017-06-08] MEDS: cefTRIAXone IV Push 1 GM VIAL. IVP SCH (16:13)
[2017-06-08] MEDS: AMINO AC 3%/ELECTROLYTE/GLYCER 1,000 ML IV SCH (17:00)
[2017-06-08 19:00] VITALS: BP 126/51
--- NOTE | 2017-06-08 22:52 | CONS ---
DATE OF CONSULTATION: 06/08/2017 REASON FOR CONSULTATION: Coffee-ground emesis. HISTORY OF PRESENT ILLNESS: This is a pleasant 72-year-old female with past medical history significant for retardation, hypertension, osteoporosis, type 2 diabetes, who is seen for reported coffee-ground emesis. She has no complaints at this time. Her hemoglobin has dropped from 11.7 to 9.0 with stable vital signs. She has no additional complaints presently and is thirsty. PAST MEDICAL HISTORY: Diabetes, hypertension, osteoporosis, status post cholecystectomy. SOCIAL HISTORY: She does not drink or smoke. Lives in a snf for mentally handicapped individuals. FAMILY HISTORY: Noncontributory. REVIEW OF SYSTEMS: Per records. PHYSICAL EXAMINATION: GENERAL: A well-nourished, well-developed female. VITAL SIGNS: Temperature is 99.1, pulse 78, respiration rate 17, blood pressure 102/41. HEENT: Normocephalic and atraumatic head. Pupils and extraocular not tested. Sclerae anicteric. NECK: Supple. LUNGS: Clear. CARDIOVASCULAR: Reveals an S1, S2 without S3, S4 or appreciable murmur. ABDOMEN: Soft abdomen, normal bowel sounds without appreciable hepatosplenomegaly. EXTREMITIES: Reveals no cyanosis, clubbing, edema. LABORATORY STUDIES: Hemoglobin is 9.0, hematocrit 27.1, white count 8.3, platelet count 170,000. Sodium 149, potassium 3.7, chloride 114, BUN 39, creatinine 1.5, glucose is 77, total bilirubin 0.2, alkaline phosphatase 192, ALT of 25, AST of 17, lipase is 154. IMPRESSION: Hematemesis, coffee-ground emesis, most likely secondary to reflux, possible ulcer. We will recommend medical therapy with serial blood counts, PPI therapy at this time and monitoring of her levels in view of her limited capacity insight. JUSTINA MARTÍNEZ MD DR: SHANI/humberto JOB#: [id number] / [id number]
[2017-06-08 23:33] VITALS: BP 126/51
[2017-06-09 03:41] VITALS: BP 116/50
[2017-06-09 05:48] LABS: BASO # 0.1 x10^3/uL (0.0-0.2); BASO % 1 % (0-3); EOS % 2 % (0-3); HEMATOCRIT 26.4 % (36.0-47.0); HEMOGLOBIN 8.8 g/dL (12.0-15.5); LYMPH # 1.2 x10^3/uL (1.0-4.8); LYMPH % 20 % (24-48); MEAN CORPUSCULAR HEMOGLOBIN 33 pg (25-35); MEAN CORPUSCULAR HGB CONC 33 g/dL (31-37); MEAN CORPUSCULAR VOLUME 98 fL (79-100); MONO % 10 % (0-9); NEUT % 68 % (31-73); PLATELET COUNT 144 x10^3/uL (140-400); RED BLOOD COUNT 2.69 x10^6/uL (3.50-5.40); RED CELL DISTRIBUTION WIDTH 13.4 % (11.5-14.5)
[2017-06-09 06:09] LABS: ALBUMIN 2.3 g/dL (3.4-5.0); ALBUMIN/GLOBULIN RATIO 0.6 (1.0-1.7); CALCIUM 8.7 mg/dL (8.5-10.1); CREATININE 1.5 mg/dL (0.6-1.0); GFR 34.2; TOTAL BILIRUBIN 0.2 mg/dL (0.2-1.0); TOTAL PROTEIN 6.1 g/dL (6.4-8.2)
[2017-06-09] MEDS: AMINO AC 3%/ELECTROLYTE/GLYCER 1,000 ML IV SCH ×2 (06:20→13:18)
[2017-06-09 07:00] VITALS: BP 120/74
[2017-06-09] MEDS: INSULIN ASPART 300 UNITS/3 ML INSULN.PEN SQ SCH ×4 (07:30→20:26)
[2017-06-09] MEDS: PANTOPRAZOLE 40 MG TABLET.DR. PO SCH (07:30)
[2017-06-09] MEDS: LISINOPRIL 10 MG TABLET PO SCH (09:00)
[2017-06-09] MEDS: hydroCHLOROthiazide 25 MG TABLET PO SCH (09:00)
[2017-06-09] MEDS: METOPROLOL TART IMMED RELEASE 50 MG TABLET. PO SCH ×2 (09:00→20:26)
[2017-06-09] MEDS: FERROUS SULFATE 325 MG TABLET. PO SCH (09:00)
--- NOTE | 2017-06-09 10:32 | PDOC ---
PROGRESS NOTES Chief Complaint Chief Complaint Gi Bleed with Hematemesis Dehydration UTI ARF/CRF Malnutrition Type 2 diabetes. Hypertension. Osteoporosis. Mental retardation. Cholecystectomy. History of Present Illness History of Present Illness Patient seen and examined. Resting comfortably, in no acute distress. Denies chest pain, shortness of breath, fevers/chills. Vitals Vitals Vital Signs Date Time Temp Pulse Resp B/P (MAP) Pulse Ox O2 Delivery O2 Flow Rate FiO2 06/09/17 07:00 98.9 61 14 120/74 (89) 93 Room Air 98.9 Physical Exam General: Other (Minimal responsiveness (Chronic)) Heart: Regular rate, Normal S1 Lungs: Clear Abdomen: Normal bowel sounds, Soft Extremities: No clubbing, No cyanosis Skin: No rashes, No breakdown Labs LABS Laboratory Tests Test 06/08/17 10:38 06/08/17 12:15 06/08/17 16:12 06/08/17 20:37 Glucose (Fingerstick) 69 mg/dL (70-99) 55 mg/dL (70-99) 54 mg/dL (70-99) 51 mg/dL (70-99) Test 06/08/17 20:55 06/09/17 04:55 06/09/17 07:24 Glucose (Fingerstick) 145 mg/dL (70-99) 79 mg/dL (70-99) White Blood Count 6.0 x10^3/uL (4.0-11.0) Red Blood Count 2.69 x10^6/uL (3.50-5.40) Hemoglobin 8.8 g/dL (12.0-15.5) Hematocrit 26.4 % (36.0-47.0) Mean Corpuscular Volume 98 fL (79-100) Mean Corpuscular Hemoglobin 33 pg (25-35) Mean Corpuscular Hemoglobin Concent 33 g/dL (31-37) Red Cell Distribution Width 13.4 % (11.5-14.5) Platelet Count 144 x10^3/uL (140-400) Neutrophils (%) (Auto) 68 % (31-73) Lymphocytes (%) (Auto) 20 % (24-48) Monocytes (%) (Auto) 10 % (0-9) Eosinophils (%) (Auto) 2 % (0-3) Basophils (%) (Auto) 1 % (0-3) Neutrophils # (Auto) 4.0 x10^3uL (1.8-7.7) Lymphocytes # (Auto) 1.2 x10^3/uL (1.0-4.8) Monocytes # (Auto) 0.6 x10^3/uL (0.0-1.1) Eosinophils # (Auto) 0.1 x10^3/uL (0.0-0.7) Basophils # (Auto) 0.1 x10^3/uL (0.0-0.2) Sodium Level 150 mmol/L (136-145) Potassium Level 4.0 mmol/L (3.5-5.1) Chloride Level 115 mmol/L (98-107) Carbon Dioxide Level 28 mmol/L (21-32) Anion Gap 7 (6-14) Blood Urea Nitrogen 27 mg/dL (7-20) Creatinine 1.5 mg/dL (0.6-1.0) Estimated GFR (Cockcroft-Gault) 34.2 BUN/Creatinine Ratio 18 (6-20) Glucose Level 79 mg/dL (70-99) Calcium Level 8.7 mg/dL (8.5-10.1) Total Bilirubin 0.2 mg/dL (0.2-1.0) Aspartate Amino Transf (AST/SGOT) 22 U/L (15-37) Alanine Aminotransferase (ALT/SGPT) 20 U/L (14-59) Alkaline Phosphatase 85 U/L (46-116) Total Protein 6.1 g/dL (6.4-8.2) Albumin 2.3 g/dL (3.4-5.0) Albumin/Globulin Ratio 0.6 (1.0-1.7) Review of Systems Review of Systems Denies shortness of breath, fevers/chills, chest pain. Assessment and Plan Assessmemt and Plan Problems Medical Problems: (1) Dehydration Status: Acute (2) Hypernatremia Status: Acute (3) Urinary tract infection Status: Acute Gi Bleed with Hematemesis Dehydration UTI ARF/CRF Malnutrition Type 2 diabetes. Hypertension. Osteoporosis. Mental retardation. Cholecystectomy. PLAN: GI consulted- medical therapy, EGD if symptoms worsen Trend Hgb levels PPI Continue home medications mIVF Rocephin Nutritional support PT/OT Recheck AM labs Problems: Comment Review of Relevant I have reviewed the following items negro (where applicable) has been applied. Labs Laboratory Tests Test 06/07/17 10:38 06/07/17 13:00 06/07/17 17:06 06/07/17 17:13 Glucose (Fingerstick) 238 mg/dL (70-99) 29 mg/dL (70-99) 23 mg/dL (70-99) Nasal Screen MRSA (PCR) Negative (Negative) Test 06/07/17 17:52 06/07/17 21:58 06/07/17 22:09 06/07/17 23:00 Glucose (Fingerstick) 168 mg/dL (70-99) 66 mg/dL (70-99) 63 mg/dL (70-99) 89 mg/dL (70-99) Test 06/08/17 02:55 06/08/17 04:00 06/08/17 08:03 06/08/17 10:38 Glucose (Fingerstick) 62 mg/dL (70-99) 55 mg/dL (70-99) 69 mg/dL (70-99) White Blood Count 8.3 x10^3/uL (4.0-11.0) Red Blood Count 2.77 x10^6/uL (3.50-5.40) Hemoglobin 9.0 g/dL (12.0-15.5) Hematocrit 27.1 % (36.0-47.0) Mean Corpuscular Volume 98 fL (79-100) Mean Corpuscular Hemoglobin 33 pg (25-35) Mean Corpuscular Hemoglobin Concent 33 g/dL (31-37) Red Cell Distribution Width 13.6 % (11.5-14.5) Platelet Count 170 x10^3/uL (140-400) Neutrophils (%) (Auto) 76 % (31-73) Lymphocytes (%) (Auto) 16 % (24-48) Monocytes (%) (Auto) 6 % (0-9) Eosinophils (%) (Auto) 1 % (0-3) Basophils (%) (Auto) 1 % (0-3) Neutrophils # (Auto) 6.3 x10^3uL (1.8-7.7) Lymphocytes # (Auto) 1.3 x10^3/uL (1.0-4.8) Monocytes # (Auto) 0.5 x10^3/uL (0.0-1.1) Eosinophils # (Auto) 0.1 x10^3/uL (0.0-0.7) Basophils # (Auto) 0.0 x10^3/uL (0.0-0.2) Sodium Level 149 mmol/L (136-145) Potassium Level 3.7 mmol/L (3.5-5.1) Chloride Level 114 mmol/L (98-107) Carbon Dioxide Level 26 mmol/L (21-32) Anion Gap 9 (6-14) Blood Urea Nitrogen 39 mg/dL (7-20) Creatinine 1.5 mg/dL (0.6-1.0) Estimated GFR (Cockcroft-Gault) 34.2 Glucose Level 77 mg/dL (70-99) Calcium Level 8.6 mg/dL (8.5-10.1) Test 06/08/17 12:15 06/08/17 16:12 06/08/17 20:37 06/08/17 20:55 Glucose (Fingerstick) 55 mg/dL (70-99) 54 mg/dL (70-99) 51 mg/dL (70-99) 145 mg/dL (70-99) Test 06/09/17 04:55 06/09/17 07:24 White Blood Count 6.0 x10^3/uL (4.0-11.0) Red Blood Count 2.69 x10^6/uL (3.50-5.40) Hemoglobin 8.8 g/dL (12.0-15.5) Hematocrit 26.4 % (36.0-47.0) Mean Corpuscular Volume 98 fL (79-100) Mean Corpuscular Hemoglobin 33 pg (25-35) Mean Corpuscular Hemoglobin Concent 33 g/dL (31-37) Red Cell Distribution Width 13.4 % (11.5-14.5) Platelet Count 144 x10^3/uL (140-400) Neutrophils (%) (Auto) 68 % (31-73) Lymphocytes (%) (Auto) 20 % (24-48) Monocytes (%) (Auto) 10 % (0-9) Eosinophils (%) (Auto) 2 % (0-3) Basophils (%) (Auto) 1 % (0-3) Neutrophils # (Auto) 4.0 x10^3uL (1.8-7.7) Lymphocytes # (Auto) 1.2 x10^3/uL (1.0-4.8) Monocytes # (Auto) 0.6 x10^3/uL (0.0-1.1) Eosinophils # (Auto) 0.1 x10^3/uL (0.0-0.7) Basophils # (Auto) 0.1 x10^3/uL (0.0-0.2) Sodium Level 150 mmol/L (136-145) Potassium Level 4.0 mmol/L (3.5-5.1) Chloride Level 115 mmol/L (98-107) Carbon Dioxide Level 28 mmol/L (21-32) Anion Gap 7 (6-14) Blood Urea Nitrogen 27 mg/dL (7-20) Creatinine 1.5 mg/dL (0.6-1.0) Estimated GFR (Cockcroft-Gault) 34.2 BUN/Creatinine Ratio 18 (6-20) Glucose Level 79 mg/dL (70-99) Calcium Level 8.7 mg/dL (8.5-10.1) Total Bilirubin 0.2 mg/dL (0.2-1.0) Aspartate Amino Transf (AST/SGOT) 22 U/L (15-37) Alanine Aminotransferase (ALT/SGPT) 20 U/L (14-59) Alkaline Phosphatase 85 U/L (46-116) Total Protein 6.1 g/dL (6.4-8.2) Albumin 2.3 g/dL (3.4-5.0) Albumin/Globulin Ratio 0.6 (1.0-1.7) Glucose (Fingerstick) 79 mg/dL (70-99) Laboratory Tests Test 06/08/17 10:38 06/08/17 12:15 06/08/17 16:12 06/08/17 20:37 Glucose (Fingerstick) 69 mg/dL (70-99) 55 mg/dL (70-99) 54 mg/dL (70-99) 51 mg/dL (70-99) Test 06/08/17 20:55 06/09/17 04:55 06/09/17 07:24 Glucose (Fingerstick) 145 mg/dL (70-99) 79 mg/dL (70-99) White Blood Count 6.0 x10^3/uL (4.0-11.0) Red Blood Count 2.69 x10^6/uL (3.50-5.40) Hemoglobin 8.8 g/dL (12.0-15.5) Hematocrit 26.4 % (36.0-47.0) Mean Corpuscular Volume 98 fL (79-100) Mean Corpuscular Hemoglobin 33 pg (25-35) Mean Corpuscular Hemoglobin Concent 33 g/dL (31-37) Red Cell Distribution Width 13.4 % (11.5-14.5) Platelet Count 144 x10^3/uL (140-400) Neutrophils (%) (Auto) 68 % (31-73) Lymphocytes (%) (Auto) 20 % (24-48) Monocytes (%) (Auto) 10 % (0-9) Eosinophils (%) (Auto) 2 % (0-3) Basophils (%) (Auto) 1 % (0-3) Neutrophils # (Auto) 4.0 x10^3uL (1.8-7.7) Lymphocytes # (Auto) 1.2 x10^3/uL (1.0-4.8) Monocytes # (Auto) 0.6 x10^3/uL (0.0-1.1) Eosinophils # (Auto) 0.1 x10^3/uL (0.0-0.7) Basophils # (Auto) 0.1 x10^3/uL (0.0-0.2) Sodium Level 150 mmol/L (136-145) Potassium Level 4.0 mmol/L (3.5-5.1) Chloride Level 115 mmol/L (98-107) Carbon Dioxide Level 28 mmol/L (21-32) Anion Gap 7 (6-14) Blood Urea Nitrogen 27 mg/dL (7-20) Creatinine 1.5 mg/dL (0.6-1.0) Estimated GFR (Cockcroft-Gault) 34.2 BUN/Creatinine Ratio 18 (6-20) Glucose Level 79 mg/dL (70-99) Calcium Level 8.7 mg/dL (8.5-10.1) Total Bilirubin 0.2 mg/dL (0.2-1.0) Aspartate Amino Transf (AST/SGOT) 22 U/L (15-37) Alanine Aminotransferase (ALT/SGPT) 20 U/L (14-59) Alkaline Phosphatase 85 U/L (46-116) Total Protein 6.1 g/dL (6.4-8.2) Albumin 2.3 g/dL (3.4-5.0) Albumin/Globulin Ratio 0.6 (1.0-1.7) Microbiology 06/07/17 Urine Culture - Preliminary, Resulted 06/07/17 Urine Culture Result 1 (ELVIS) - Preliminary, Resulted Medications Current Medications Albuterol/ Ipratropium (Duoneb) 3 ml 1X ONCE NEB Last administered on 05:55; Start 06/07/17 at 06:00; Stop 06/07/17 at 06:01; Status DC Sodium Chloride 1,000 ml @ 1,000 mls/hr 1X ONCE IV Last administered on 06/07 06:00; Start 06/07/17 at 06:00; Stop 06/07/17 at 06:59; Status DC Ceftriaxone Sodium 50 ml @ 100 mls/hr 1X ONCE IV Last administered on 06:28; Start 06/07/17 at 06:30; Stop 06/07/17 at 06:59; Status DC Ondansetron HCl (Zofran) 4 mg PRN Q8HRS PRN IV NAUSEA/VOMITING; Start at 06:15; Stop 06/08/17 at 06:14; Status DC Acetaminophen (Tylenol) 650 mg PRN Q4HRS PRN PO FEVER; Start 06/07/17 at 06:15 ; Stop 06/08/17 at 06:14; Status DC Ferrous Sulfate (Feosol) 325 mg DAILY PO Last administered on 06/07/17 12:34 ; Start 06/07/17 at 10:00 Glipizide (Glucotrol) 2.5 mg DAILYWSUP PO ; Start 06/07/17 at 17:00; Stop at 17:00; Status DC Glipizide (Glucotrol) 5 mg DAILYWBKFT PO ; Start 06/08/17 at 09:30; Stop 06/08 at 09:30; Status DC Hydrochlorothiazide (Hydrodiuril) 25 mg DAILY PO Last administered on 12:34; Start 06/07/17 at 10:00 Lisinopril (Prinivil) 10 mg DAILY PO Last administered on 06/07/17 12:34; Start 06/07/17 at 10:00 Metformin HCl (Glucophage Xr) 500 mg DAILYWBKFT PO ; Start 06/07/17 at 10:00; Status UNV Non-Formulary Medication 1 tab DAILY PO ; Start 06/08/17 at 09:00; Status UNV Metoprolol Tartrate (Lopressor) 100 mg BID PO Last administered on 06/07/17 12:33; Start 06/07/17 at 10:00 Nifedipine (Procardia Xl) 30 mg DAILY PO Last administered on 06/07/17 12:33 ; Start 06/07/17 at 10:00 Sodium Chloride 1,000 ml @ 100 mls/hr Q10H IV Last administered on 06/07/17 12:41; Start 06/07/17 at 09:27; Stop 06/07/17 at 19:26; Status DC Enoxaparin Sodium (Lovenox 30mg Syringe) 30 mg Q24H SQ Last administered on 12:35; Start 06/07/17 at 09:45 Insulin Aspart (NovoLOG) 0-12 UNITS QIDACHS SQ Last administered on 06/07/17 11:30; Start 06/07/17 at 11:30 Glipizide (Glucotrol) 5 mg BIDBFRMEAL PO ; Start 06/08/17 at 08:00; Stop 06/08 at 08:52; Status DC Dextrose (Dextrose 50%-Water Syringe) 12.5 gm PRN Q15MIN PRN IV SEE COMMENTS Last administered on 06/08/17 20:42; Start 06/07/17 at 17:30 Dextrose (Dextrose 50%-Water Syringe) 25 gm STK-MED ONCE IV ; Start 06/07/17 at 17:24; Stop 06/07/17 at 17:25; Status DC Dextrose (Dextrose 50%-Water Syringe) 25 gm 1X ONCE IV Last administered on 17:10; Start 06/07/17 at 18:00; Stop 06/07/17 at 18:01; Status DC Dextrose (Dextrose 50%-Water Syringe) 25 gm 1X ONCE IV ; Start 06/07/17 at 18: 00; Stop 06/07/17 at 18:01; Status UNV Ceftriaxone Sodium (Rocephin) 1 gm Q24H IVP Last administered on 06/08/17 16: 13; Start 06/08/17 at 13:00 Pantoprazole Sodium (Protonix) 40 mg DAILYAC PO ; Start 06/08/17 at 16:00 Amino Acids/ Glycerin/ Electrolytes 1,000 ml @ 75 mls/hr [id number] IV Last administered on 06/08/17 17:00; Start 06/08/17 at 17:00 Active Scripts Active [Hydrocodone/Acetaminophen] 1 TAB Tablet 1 Tab PO PRN Q6HRS PRN Keflex (Cephalexin) 500 Mg Capsule 1,000 Mg PO BID Reported Hydrochlorothiazide Tablet (Hydrochlorothiazide) 25 Mg Tablet 1 Tab PO DAILY Zithromax (Azithromycin) 250 Mg Tablet 250 Mg PO DAILY 1 Days Nifedipine 20 Mg Capsule 30 Mg PO DAILY Benazepril Hcl 20 Mg Tablet 1 Tab PO DAILY Pain Reliever-Fever [employer] (Acetaminophen) 500 Mg/15 Ml Liquid 500 Mg PO Loperamide (Loperamide Hcl) 2 Mg Capsule 2 Mg PO Metformin Hcl Er (Metformin Hcl) 500 Mg Tab.er.24h 1 Tab PO Metoprolol Tartrate 100 Mg Tablet 100 Mg PO BID Lisinopril 10 Mg Tablet 10 Mg PO DAILY Glipizide 5 Mg Tablet 2.5 Mg PO QEVNG Glipizide 5 Mg Tablet 5 Mg PO DAILY Ferrous Sulfate 325 Mg Tablet 325 Mg PO DAILY Caltrate 600 + D Tablet (Calcium Carbonate/Vitamin D3) 1 Each Tablet 1 Each PO BID Fosamax (Alendronate Sodium) 70 Mg Tablet 70 Mg PO WEEKLY Vitals/I & O Vital Sign - Last 24 Hours 06/08/17 06/08/17 06/08/17 06/08/17 10:53 14:41 19:00 19:50 Temp 98.8 99.1 98.9 98.8 99.1 98.9 Pulse 80 78 76 Resp 16 17 20 B/P (MAP) 105/39 (61) 102/41 (61) 126/51 (76) Pulse Ox 93 95 95 O2 Delivery Room Air Room Air Room Air Room Air 06/08/17 06/08/17 06/09/17 06/09/17 21:00 23:33 03:41 07:00 Temp 98.9 98.4 98.9 98.9 98.4 98.9 Pulse 76 76 77 61 Resp 20 20 14 B/P (MAP) 126/51 126/51 (76) 116/50 (72) 120/74 (89) Pulse Ox 95 96 93 O2 Delivery Room Air Room Air Room Air Intake and Output 06/08/17 06/08/17 06/09/17 14:59 22:59 06:59 Intake Total 50 ml 750 ml Balance 50 ml 750 ml ANTONY PERSONL K III DO Jun 09, 2017 10:32
[2017-06-09 10:53] VITALS: BP 126/68
--- NOTE | 2017-06-09 10:54 | PDOC ---
G I PROGRESS NOTE Reason for Follow-up Coffee ground emesis/anemia Subjective Without new complaints Physical Exam Lungs clear CV S1 S2 ABD +BS, soft, nontender Review of Relevant I have reviewed the following items negro (where applicable) has been applied. Labs Laboratory Tests Test 06/07/17 13:00 06/07/17 17:06 06/07/17 17:13 06/07/17 17:52 Nasal Screen MRSA (PCR) Negative (Negative) Glucose (Fingerstick) 29 mg/dL (70-99) 23 mg/dL (70-99) 168 mg/dL (70-99) Test 06/07/17 21:58 06/07/17 22:09 06/07/17 23:00 06/08/17 02:55 Glucose (Fingerstick) 66 mg/dL (70-99) 63 mg/dL (70-99) 89 mg/dL (70-99) 62 mg/dL (70-99) Test 06/08/17 04:00 06/08/17 08:03 06/08/17 10:38 06/08/17 12:15 White Blood Count 8.3 x10^3/uL (4.0-11.0) Red Blood Count 2.77 x10^6/uL (3.50-5.40) Hemoglobin 9.0 g/dL (12.0-15.5) Hematocrit 27.1 % (36.0-47.0) Mean Corpuscular Volume 98 fL (79-100) Mean Corpuscular Hemoglobin 33 pg (25-35) Mean Corpuscular Hemoglobin Concent 33 g/dL (31-37) Red Cell Distribution Width 13.6 % (11.5-14.5) Platelet Count 170 x10^3/uL (140-400) Neutrophils (%) (Auto) 76 % (31-73) Lymphocytes (%) (Auto) 16 % (24-48) Monocytes (%) (Auto) 6 % (0-9) Eosinophils (%) (Auto) 1 % (0-3) Basophils (%) (Auto) 1 % (0-3) Neutrophils # (Auto) 6.3 x10^3uL (1.8-7.7) Lymphocytes # (Auto) 1.3 x10^3/uL (1.0-4.8) Monocytes # (Auto) 0.5 x10^3/uL (0.0-1.1) Eosinophils # (Auto) 0.1 x10^3/uL (0.0-0.7) Basophils # (Auto) 0.0 x10^3/uL (0.0-0.2) Sodium Level 149 mmol/L (136-145) Potassium Level 3.7 mmol/L (3.5-5.1) Chloride Level 114 mmol/L (98-107) Carbon Dioxide Level 26 mmol/L (21-32) Anion Gap 9 (6-14) Blood Urea Nitrogen 39 mg/dL (7-20) Creatinine 1.5 mg/dL (0.6-1.0) Estimated GFR (Cockcroft-Gault) 34.2 Glucose Level 77 mg/dL (70-99) Calcium Level 8.6 mg/dL (8.5-10.1) Glucose (Fingerstick) 55 mg/dL (70-99) 69 mg/dL (70-99) 55 mg/dL (70-99) Test 06/08/17 16:12 06/08/17 20:37 06/08/17 20:55 06/09/17 04:55 Glucose (Fingerstick) 54 mg/dL (70-99) 51 mg/dL (70-99) 145 mg/dL (70-99) White Blood Count 6.0 x10^3/uL (4.0-11.0) Red Blood Count 2.69 x10^6/uL (3.50-5.40) Hemoglobin 8.8 g/dL (12.0-15.5) Hematocrit 26.4 % (36.0-47.0) Mean Corpuscular Volume 98 fL (79-100) Mean Corpuscular Hemoglobin 33 pg (25-35) Mean Corpuscular Hemoglobin Concent 33 g/dL (31-37) Red Cell Distribution Width 13.4 % (11.5-14.5) Platelet Count 144 x10^3/uL (140-400) Neutrophils (%) (Auto) 68 % (31-73) Lymphocytes (%) (Auto) 20 % (24-48) Monocytes (%) (Auto) 10 % (0-9) Eosinophils (%) (Auto) 2 % (0-3) Basophils (%) (Auto) 1 % (0-3) Neutrophils # (Auto) 4.0 x10^3uL (1.8-7.7) Lymphocytes # (Auto) 1.2 x10^3/uL (1.0-4.8) Monocytes # (Auto) 0.6 x10^3/uL (0.0-1.1) Eosinophils # (Auto) 0.1 x10^3/uL (0.0-0.7) Basophils # (Auto) 0.1 x10^3/uL (0.0-0.2) Sodium Level 150 mmol/L (136-145) Potassium Level 4.0 mmol/L (3.5-5.1) Chloride Level 115 mmol/L (98-107) Carbon Dioxide Level 28 mmol/L (21-32) Anion Gap 7 (6-14) Blood Urea Nitrogen 27 mg/dL (7-20) Creatinine 1.5 mg/dL (0.6-1.0) Estimated GFR (Cockcroft-Gault) 34.2 BUN/Creatinine Ratio 18 (6-20) Glucose Level 79 mg/dL (70-99) Calcium Level 8.7 mg/dL (8.5-10.1) Total Bilirubin 0.2 mg/dL (0.2-1.0) Aspartate Amino Transf (AST/SGOT) 22 U/L (15-37) Alanine Aminotransferase (ALT/SGPT) 20 U/L (14-59) Alkaline Phosphatase 85 U/L (46-116) Total Protein 6.1 g/dL (6.4-8.2) Albumin 2.3 g/dL (3.4-5.0) Albumin/Globulin Ratio 0.6 (1.0-1.7) Test 06/09/17 07:24 Glucose (Fingerstick) 79 mg/dL (70-99) Laboratory Tests Test 06/08/17 12:15 06/08/17 16:12 06/08/17 20:37 06/08/17 20:55 Glucose (Fingerstick) 55 mg/dL (70-99) 54 mg/dL (70-99) 51 mg/dL (70-99) 145 mg/dL (70-99) Test 06/09/17 04:55 06/09/17 07:24 White Blood Count 6.0 x10^3/uL (4.0-11.0) Red Blood Count 2.69 x10^6/uL (3.50-5.40) Hemoglobin 8.8 g/dL (12.0-15.5) Hematocrit 26.4 % (36.0-47.0) Mean Corpuscular Volume 98 fL (79-100) Mean Corpuscular Hemoglobin 33 pg (25-35) Mean Corpuscular Hemoglobin Concent 33 g/dL (31-37) Red Cell Distribution Width 13.4 % (11.5-14.5) Platelet Count 144 x10^3/uL (140-400) Neutrophils (%) (Auto) 68 % (31-73) Lymphocytes (%) (Auto) 20 % (24-48) Monocytes (%) (Auto) 10 % (0-9) Eosinophils (%) (Auto) 2 % (0-3) Basophils (%) (Auto) 1 % (0-3) Neutrophils # (Auto) 4.0 x10^3uL (1.8-7.7) Lymphocytes # (Auto) 1.2 x10^3/uL (1.0-4.8) Monocytes # (Auto) 0.6 x10^3/uL (0.0-1.1) Eosinophils # (Auto) 0.1 x10^3/uL (0.0-0.7) Basophils # (Auto) 0.1 x10^3/uL (0.0-0.2) Sodium Level 150 mmol/L (136-145) Potassium Level 4.0 mmol/L (3.5-5.1) Chloride Level 115 mmol/L (98-107) Carbon Dioxide Level 28 mmol/L (21-32) Anion Gap 7 (6-14) Blood Urea Nitrogen 27 mg/dL (7-20) Creatinine 1.5 mg/dL (0.6-1.0) Estimated GFR (Cockcroft-Gault) 34.2 BUN/Creatinine Ratio 18 (6-20) Glucose Level 79 mg/dL (70-99) Calcium Level 8.7 mg/dL (8.5-10.1) Total Bilirubin 0.2 mg/dL (0.2-1.0) Aspartate Amino Transf (AST/SGOT) 22 U/L (15-37) Alanine Aminotransferase (ALT/SGPT) 20 U/L (14-59) Alkaline Phosphatase 85 U/L (46-116) Total Protein 6.1 g/dL (6.4-8.2) Albumin 2.3 g/dL (3.4-5.0) Albumin/Globulin Ratio 0.6 (1.0-1.7) Glucose (Fingerstick) 79 mg/dL (70-99) Microbiology 06/07/17 Urine Culture - Preliminary, Resulted 06/07/17 Urine Culture Result 1 (ELVIS) - Preliminary, Resulted Medications Current Medications Albuterol/ Ipratropium (Duoneb) 3 ml 1X ONCE NEB Last administered on 05:55; Start 06/07/17 at 06:00; Stop 06/07/17 at 06:01; Status DC Sodium Chloride 1,000 ml @ 1,000 mls/hr 1X ONCE IV Last administered on 06/07 06:00; Start 06/07/17 at 06:00; Stop 06/07/17 at 06:59; Status DC Ceftriaxone Sodium 50 ml @ 100 mls/hr 1X ONCE IV Last administered on 06:28; Start 06/07/17 at 06:30; Stop 06/07/17 at 06:59; Status DC Ondansetron HCl (Zofran) 4 mg PRN Q8HRS PRN IV NAUSEA/VOMITING; Start at 06:15; Stop 06/08/17 at 06:14; Status DC Acetaminophen (Tylenol) 650 mg PRN Q4HRS PRN PO FEVER; Start 06/07/17 at 06:15 ; Stop 06/08/17 at 06:14; Status DC Ferrous Sulfate (Feosol) 325 mg DAILY PO Last administered on 06/07/17 12:34 ; Start 06/07/17 at 10:00 Glipizide (Glucotrol) 2.5 mg DAILYWSUP PO ; Start 06/07/17 at 17:00; Stop at 17:00; Status DC Glipizide (Glucotrol) 5 mg DAILYWBKFT PO ; Start 06/08/17 at 09:30; Stop 06/08 at 09:30; Status DC Hydrochlorothiazide (Hydrodiuril) 25 mg DAILY PO Last administered on 12:34; Start 06/07/17 at 10:00 Lisinopril (Prinivil) 10 mg DAILY PO Last administered on 06/07/17 12:34; Start 06/07/17 at 10:00 Metformin HCl (Glucophage Xr) 500 mg DAILYWBKFT PO ; Start 06/07/17 at 10:00; Status UNV Non-Formulary Medication 1 tab DAILY PO ; Start 06/08/17 at 09:00; Status UNV Metoprolol Tartrate (Lopressor) 100 mg BID PO Last administered on 06/07/17 12:33; Start 06/07/17 at 10:00 Nifedipine (Procardia Xl) 30 mg DAILY PO Last administered on 06/07/17 12:33 ; Start 06/07/17 at 10:00 Sodium Chloride 1,000 ml @ 100 mls/hr Q10H IV Last administered on 06/07/17 12:41; Start 06/07/17 at 09:27; Stop 06/07/17 at 19:26; Status DC Enoxaparin Sodium (Lovenox 30mg Syringe) 30 mg Q24H SQ Last administered on 12:35; Start 06/07/17 at 09:45 Insulin Aspart (NovoLOG) 0-12 UNITS QIDACHS SQ Last administered on 06/07/17 11:30; Start 06/07/17 at 11:30 Glipizide (Glucotrol) 5 mg BIDBFRMEAL PO ; Start 06/08/17 at 08:00; Stop 06/08 at 08:52; Status DC Dextrose (Dextrose 50%-Water Syringe) 12.5 gm PRN Q15MIN PRN IV SEE COMMENTS Last administered on 06/08/17 20:42; Start 06/07/17 at 17:30 Dextrose (Dextrose 50%-Water Syringe) 25 gm STK-MED ONCE IV ; Start 06/07/17 at 17:24; Stop 06/07/17 at 17:25; Status DC Dextrose (Dextrose 50%-Water Syringe) 25 gm 1X ONCE IV Last administered on 17:10; Start 06/07/17 at 18:00; Stop 06/07/17 at 18:01; Status DC Dextrose (Dextrose 50%-Water Syringe) 25 gm 1X ONCE IV ; Start 06/07/17 at 18: 00; Stop 06/07/17 at 18:01; Status UNV Ceftriaxone Sodium (Rocephin) 1 gm Q24H IVP Last administered on 06/08/17 16: 13; Start 06/08/17 at 13:00 Pantoprazole Sodium (Protonix) 40 mg DAILYAC PO ; Start 06/08/17 at 16:00 Amino Acids/ Glycerin/ Electrolytes 1,000 ml @ 75 mls/hr [id number] IV Last administered on 06/08/17 17:00; Start 06/08/17 at 17:00 Active Scripts Active [Hydrocodone/Acetaminophen] 1 TAB Tablet 1 Tab PO PRN Q6HRS PRN Keflex (Cephalexin) 500 Mg Capsule 1,000 Mg PO BID Reported Hydrochlorothiazide Tablet (Hydrochlorothiazide) 25 Mg Tablet 1 Tab PO DAILY Zithromax (Azithromycin) 250 Mg Tablet 250 Mg PO DAILY 1 Days Nifedipine 20 Mg Capsule 30 Mg PO DAILY Benazepril Hcl 20 Mg Tablet 1 Tab PO DAILY Pain Reliever-Fever Line Locator (Acetaminophen) 500 Mg/15 Ml Liquid 500 Mg PO Loperamide (Loperamide Hcl) 2 Mg Capsule 2 Mg PO Metformin Hcl Er (Metformin Hcl) 500 Mg Tab.er.24h 1 Tab PO Metoprolol Tartrate 100 Mg Tablet 100 Mg PO BID Lisinopril 10 Mg Tablet 10 Mg PO DAILY Glipizide 5 Mg Tablet 2.5 Mg PO QEVNG Glipizide 5 Mg Tablet 5 Mg PO DAILY Ferrous Sulfate 325 Mg Tablet 325 Mg PO DAILY Caltrate 600 + D Tablet (Calcium Carbonate/Vitamin D3) 1 Each Tablet 1 Each PO BID Fosamax (Alendronate Sodium) 70 Mg Tablet 70 Mg PO WEEKLY Vitals/I & O Vital Sign - Last 24 Hours 06/08/17 06/08/17 06/08/17 06/08/17 14:41 19:00 19:50 21:00 Temp 99.1 98.9 99.1 98.9 Pulse 78 76 76 Resp 17 20 B/P (MAP) 102/41 (61) 126/51 (76) 126/51 Pulse Ox 95 95 O2 Delivery Room Air Room Air Room Air 06/08/17 06/09/17 06/09/17 23:33 03:41 07:00 Temp 98.9 98.4 98.9 98.9 98.4 98.9 Pulse 76 77 61 Resp 20 20 14 B/P (MAP) 126/51 (76) 116/50 (72) 120/74 (89) Pulse Ox 95 96 93 O2 Delivery Room Air Room Air Room Air Intake and Output 06/08/17 06/08/17 06/09/17 15:00 23:00 07:00 Intake Total 50 ml 750 ml Balance 50 ml 750 ml Problem List Problems Medical Problems: (1) Dehydration Status: Acute (2) Hypernatremia Status: Acute (3) Urinary tract infection Status: Acute Assessment Anemia- with coffee grounds, Hg stable, recommend medical therapy in view of mental status JUSTINA MARTÍNEZ MD Jun 09, 2017 10:54
[2017-06-09] MEDS: cefTRIAXone IV Push 1 GM VIAL. IVP SCH (13:07)
[2017-06-09 14:44] VITALS: BP 130/72
[2017-06-09 19:57] VITALS: BP 162/75
[2017-06-09 23:46] VITALS: BP 160/67
[2017-06-10] MEDS: AMINO AC 3%/ELECTROLYTE/GLYCER 1,000 ML IV SCH ×2 (01:10→13:32)
[2017-06-10 02:51] VITALS: BP 164/88
[2017-06-10 05:44] LABS: BASO # 0.1 x10^3/uL (0.0-0.2); BASO % 1 % (0-3); EOS % 1 % (0-3); HEMATOCRIT 27.8 % (36.0-47.0); HEMOGLOBIN 9.4 g/dL (12.0-15.5); LYMPH # 0.9 x10^3/uL (1.0-4.8); LYMPH % 13 % (24-48); MEAN CORPUSCULAR HEMOGLOBIN 33 pg (25-35); MEAN CORPUSCULAR HGB CONC 34 g/dL (31-37); MEAN CORPUSCULAR VOLUME 98 fL (79-100); MONO % 8 % (0-9); NEUT % 78 % (31-73); PLATELET COUNT 142 x10^3/uL (140-400); RED BLOOD COUNT 2.85 x10^6/uL (3.50-5.40); RED CELL DISTRIBUTION WIDTH 13.3 % (11.5-14.5); WHITE BLOOD COUNT 7.1 x10^3/uL (4.0-11.0)
[2017-06-10 06:16] LABS: ALBUMIN 2.4 g/dL (3.4-5.0); ALBUMIN/GLOBULIN RATIO 0.6 (1.0-1.7); CALCIUM 8.7 mg/dL (8.5-10.1); CREATININE 1.2 mg/dL (0.6-1.0); GFR 44.3; POTASSIUM 4.5 mmol/L (3.5-5.1); TOTAL BILIRUBIN 0.2 mg/dL (0.2-1.0); TOTAL PROTEIN 6.6 g/dL (6.4-8.2)
[2017-06-10 07:00] VITALS: BP 154/69
[2017-06-10] MEDS: PANTOPRAZOLE 40 MG TABLET.DR. PO SCH (07:30)
[2017-06-10] MEDS: hydroCHLOROthiazide 25 MG TABLET PO SCH (09:00)
[2017-06-10] MEDS: FERROUS SULFATE 325 MG TABLET. PO SCH (09:00)
[2017-06-10] MEDS: METOPROLOL TART IMMED RELEASE 50 MG TABLET. PO SCH ×2 (09:00→21:26)
[2017-06-10] MEDS: LISINOPRIL 10 MG TABLET PO SCH (09:00)
[2017-06-10] MEDS: INSULIN ASPART 300 UNITS/3 ML INSULN.PEN SQ SCH ×4 (10:33→21:35)
--- NOTE | 2017-06-10 10:33 | PDOC ---
PROGRESS NOTES Chief Complaint Chief Complaint Gi Bleed with Hematemesis, resolved Dehydration UTI ARF/CRF Malnutrition Type 2 diabetes. Hypertension. Osteoporosis. Mental retardation. Cholecystectomy. History of Present Illness History of Present Illness Patient seen and examined. Resting comfortably, in no acute distress. More cognitive than previous day. Denies chest pain, shortness of breath, fevers/ chills. Small scratch on forehead today. Vitals Vitals Vital Signs Date Time Temp Pulse Resp B/P (MAP) Pulse Ox O2 Delivery O2 Flow Rate FiO2 06/10/17 08:00 Room Air 06/10/17 07:00 98.3 78 16 154/69 (97) 97 2.0 98.3 Physical Exam General: Other (Minimal responsiveness (Chronic)) Heart: Regular rate, Normal S1 Lungs: Clear Abdomen: Normal bowel sounds, Soft Extremities: No clubbing, No cyanosis Skin: No rashes, No breakdown Labs LABS Laboratory Tests Test 06/09/17 11:47 06/09/17 16:58 06/09/17 20:25 06/10/17 05:25 Glucose (Fingerstick) 93 mg/dL (70-99) 106 mg/dL (70-99) 128 mg/dL (70-99) White Blood Count 7.1 x10^3/uL (4.0-11.0) Red Blood Count 2.85 x10^6/uL (3.50-5.40) Hemoglobin 9.4 g/dL (12.0-15.5) Hematocrit 27.8 % (36.0-47.0) Mean Corpuscular Volume 98 fL (79-100) Mean Corpuscular Hemoglobin 33 pg (25-35) Mean Corpuscular Hemoglobin Concent 34 g/dL (31-37) Red Cell Distribution Width 13.3 % (11.5-14.5) Platelet Count 142 x10^3/uL (140-400) Neutrophils (%) (Auto) 78 % (31-73) Lymphocytes (%) (Auto) 13 % (24-48) Monocytes (%) (Auto) 8 % (0-9) Eosinophils (%) (Auto) 1 % (0-3) Basophils (%) (Auto) 1 % (0-3) Neutrophils # (Auto) 5.5 x10^3uL (1.8-7.7) Lymphocytes # (Auto) 0.9 x10^3/uL (1.0-4.8) Monocytes # (Auto) 0.6 x10^3/uL (0.0-1.1) Eosinophils # (Auto) 0.1 x10^3/uL (0.0-0.7) Basophils # (Auto) 0.1 x10^3/uL (0.0-0.2) Sodium Level 143 mmol/L (136-145) Potassium Level 4.5 mmol/L (3.5-5.1) Chloride Level 108 mmol/L (98-107) Carbon Dioxide Level 25 mmol/L (21-32) Anion Gap 10 (6-14) Blood Urea Nitrogen 30 mg/dL (7-20) Creatinine 1.2 mg/dL (0.6-1.0) Estimated GFR (Cockcroft-Gault) 44.3 BUN/Creatinine Ratio 25 (6-20) Glucose Level 182 mg/dL (70-99) Calcium Level 8.7 mg/dL (8.5-10.1) Total Bilirubin 0.2 mg/dL (0.2-1.0) Aspartate Amino Transf (AST/SGOT) 22 U/L (15-37) Alanine Aminotransferase (ALT/SGPT) 20 U/L (14-59) Alkaline Phosphatase 88 U/L (46-116) Total Protein 6.6 g/dL (6.4-8.2) Albumin 2.4 g/dL (3.4-5.0) Albumin/Globulin Ratio 0.6 (1.0-1.7) Test 06/10/17 08:50 Glucose (Fingerstick) 160 mg/dL (70-99) Review of Systems Review of Systems Denies chest pain, shortness of breath, fevers/chills, lightheadedness. Assessment and Plan Assessmemt and Plan Problems Medical Problems: (1) Dehydration Status: Acute (2) Hypernatremia Status: Acute (3) Urinary tract infection Status: Acute Gi Bleed with Hematemesis, resolved Dehydration UTI ARF/CRF Malnutrition Type 2 diabetes. Hypertension. Osteoporosis. Mental retardation. Cholecystectomy. PLAN: Trend Hgb PPI mIVF Rocephin Nutritional support @ 75ml/hr Continue home medications PT/OT Recheck AM labs Probable d/c tomorrow Problems: Comment Review of Relevant I have reviewed the following items negro (where applicable) has been applied. Labs Laboratory Tests Test 06/08/17 10:38 06/08/17 12:15 06/08/17 16:12 06/08/17 20:37 Glucose (Fingerstick) 69 mg/dL (70-99) 55 mg/dL (70-99) 54 mg/dL (70-99) 51 mg/dL (70-99) Test 06/08/17 20:55 06/09/17 04:55 06/09/17 07:24 06/09/17 11:47 Glucose (Fingerstick) 145 mg/dL (70-99) 79 mg/dL (70-99) 93 mg/dL (70-99) White Blood Count 6.0 x10^3/uL (4.0-11.0) Red Blood Count 2.69 x10^6/uL (3.50-5.40) Hemoglobin 8.8 g/dL (12.0-15.5) Hematocrit 26.4 % (36.0-47.0) Mean Corpuscular Volume 98 fL (79-100) Mean Corpuscular Hemoglobin 33 pg (25-35) Mean Corpuscular Hemoglobin Concent 33 g/dL (31-37) Red Cell Distribution Width 13.4 % (11.5-14.5) Platelet Count 144 x10^3/uL (140-400) Neutrophils (%) (Auto) 68 % (31-73) Lymphocytes (%) (Auto) 20 % (24-48) Monocytes (%) (Auto) 10 % (0-9) Eosinophils (%) (Auto) 2 % (0-3) Basophils (%) (Auto) 1 % (0-3) Neutrophils # (Auto) 4.0 x10^3uL (1.8-7.7) Lymphocytes # (Auto) 1.2 x10^3/uL (1.0-4.8) Monocytes # (Auto) 0.6 x10^3/uL (0.0-1.1) Eosinophils # (Auto) 0.1 x10^3/uL (0.0-0.7) Basophils # (Auto) 0.1 x10^3/uL (0.0-0.2) Sodium Level 150 mmol/L (136-145) Potassium Level 4.0 mmol/L (3.5-5.1) Chloride Level 115 mmol/L (98-107) Carbon Dioxide Level 28 mmol/L (21-32) Anion Gap 7 (6-14) Blood Urea Nitrogen 27 mg/dL (7-20) Creatinine 1.5 mg/dL (0.6-1.0) Estimated GFR (Cockcroft-Gault) 34.2 BUN/Creatinine Ratio 18 (6-20) Glucose Level 79 mg/dL (70-99) Calcium Level 8.7 mg/dL (8.5-10.1) Total Bilirubin 0.2 mg/dL (0.2-1.0) Aspartate Amino Transf (AST/SGOT) 22 U/L (15-37) Alanine Aminotransferase (ALT/SGPT) 20 U/L (14-59) Alkaline Phosphatase 85 U/L (46-116) Total Protein 6.1 g/dL (6.4-8.2) Albumin 2.3 g/dL (3.4-5.0) Albumin/Globulin Ratio 0.6 (1.0-1.7) Test 06/09/17 16:58 06/09/17 20:25 06/10/17 05:25 06/10/17 08:50 Glucose (Fingerstick) 106 mg/dL (70-99) 128 mg/dL (70-99) 160 mg/dL (70-99) White Blood Count 7.1 x10^3/uL (4.0-11.0) Red Blood Count 2.85 x10^6/uL (3.50-5.40) Hemoglobin 9.4 g/dL (12.0-15.5) Hematocrit 27.8 % (36.0-47.0) Mean Corpuscular Volume 98 fL (79-100) Mean Corpuscular Hemoglobin 33 pg (25-35) Mean Corpuscular Hemoglobin Concent 34 g/dL (31-37) Red Cell Distribution Width 13.3 % (11.5-14.5) Platelet Count 142 x10^3/uL (140-400) Neutrophils (%) (Auto) 78 % (31-73) Lymphocytes (%) (Auto) 13 % (24-48) Monocytes (%) (Auto) 8 % (0-9) Eosinophils (%) (Auto) 1 % (0-3) Basophils (%) (Auto) 1 % (0-3) Neutrophils # (Auto) 5.5 x10^3uL (1.8-7.7) Lymphocytes # (Auto) 0.9 x10^3/uL (1.0-4.8) Monocytes # (Auto) 0.6 x10^3/uL (0.0-1.1) Eosinophils # (Auto) 0.1 x10^3/uL (0.0-0.7) Basophils # (Auto) 0.1 x10^3/uL (0.0-0.2) Sodium Level 143 mmol/L (136-145) Potassium Level 4.5 mmol/L (3.5-5.1) Chloride Level 108 mmol/L (98-107) Carbon Dioxide Level 25 mmol/L (21-32) Anion Gap 10 (6-14) Blood Urea Nitrogen 30 mg/dL (7-20) Creatinine 1.2 mg/dL (0.6-1.0) Estimated GFR (Cockcroft-Gault) 44.3 BUN/Creatinine Ratio 25 (6-20) Glucose Level 182 mg/dL (70-99) Calcium Level 8.7 mg/dL (8.5-10.1) Total Bilirubin 0.2 mg/dL (0.2-1.0) Aspartate Amino Transf (AST/SGOT) 22 U/L (15-37) Alanine Aminotransferase (ALT/SGPT) 20 U/L (14-59) Alkaline Phosphatase 88 U/L (46-116) Total Protein 6.6 g/dL (6.4-8.2) Albumin 2.4 g/dL (3.4-5.0) Albumin/Globulin Ratio 0.6 (1.0-1.7) Laboratory Tests Test 06/09/17 11:47 06/09/17 16:58 06/09/17 20:25 06/10/17 05:25 Glucose (Fingerstick) 93 mg/dL (70-99) 106 mg/dL (70-99) 128 mg/dL (70-99) White Blood Count 7.1 x10^3/uL (4.0-11.0) Red Blood Count 2.85 x10^6/uL (3.50-5.40) Hemoglobin 9.4 g/dL (12.0-15.5) Hematocrit 27.8 % (36.0-47.0) Mean Corpuscular Volume 98 fL (79-100) Mean Corpuscular Hemoglobin 33 pg (25-35) Mean Corpuscular Hemoglobin Concent 34 g/dL (31-37) Red Cell Distribution Width 13.3 % (11.5-14.5) Platelet Count 142 x10^3/uL (140-400) Neutrophils (%) (Auto) 78 % (31-73) Lymphocytes (%) (Auto) 13 % (24-48) Monocytes (%) (Auto) 8 % (0-9) Eosinophils (%) (Auto) 1 % (0-3) Basophils (%) (Auto) 1 % (0-3) Neutrophils # (Auto) 5.5 x10^3uL (1.8-7.7) Lymphocytes # (Auto) 0.9 x10^3/uL (1.0-4.8) Monocytes # (Auto) 0.6 x10^3/uL (0.0-1.1) Eosinophils # (Auto) 0.1 x10^3/uL (0.0-0.7) Basophils # (Auto) 0.1 x10^3/uL (0.0-0.2) Sodium Level 143 mmol/L (136-145) Potassium Level 4.5 mmol/L (3.5-5.1) Chloride Level 108 mmol/L (98-107) Carbon Dioxide Level 25 mmol/L (21-32) Anion Gap 10 (6-14) Blood Urea Nitrogen 30 mg/dL (7-20) Creatinine 1.2 mg/dL (0.6-1.0) Estimated GFR (Cockcroft-Gault) 44.3 BUN/Creatinine Ratio 25 (6-20) Glucose Level 182 mg/dL (70-99) Calcium Level 8.7 mg/dL (8.5-10.1) Total Bilirubin 0.2 mg/dL (0.2-1.0) Aspartate Amino Transf (AST/SGOT) 22 U/L (15-37) Alanine Aminotransferase (ALT/SGPT) 20 U/L (14-59) Alkaline Phosphatase 88 U/L (46-116) Total Protein 6.6 g/dL (6.4-8.2) Albumin 2.4 g/dL (3.4-5.0) Albumin/Globulin Ratio 0.6 (1.0-1.7) Test 06/10/17 08:50 Glucose (Fingerstick) 160 mg/dL (70-99) Microbiology 06/07/17 Urine Culture - Final, Complete 06/07/17 Urine Culture Result 1 (ELVIS) - Final, Complete 06/07/17 Antimicrobic Susceptibility - Final, Complete Medications Current Medications Albuterol/ Ipratropium (Duoneb) 3 ml 1X ONCE NEB Last administered on 05:55; Start 06/07/17 at 06:00; Stop 06/07/17 at 06:01; Status DC Sodium Chloride 1,000 ml @ 1,000 mls/hr 1X ONCE IV Last administered on 06/07 06:00; Start 06/07/17 at 06:00; Stop 06/07/17 at 06:59; Status DC Ceftriaxone Sodium 50 ml @ 100 mls/hr 1X ONCE IV Last administered on 06:28; Start 06/07/17 at 06:30; Stop 06/07/17 at 06:59; Status DC Ondansetron HCl (Zofran) 4 mg PRN Q8HRS PRN IV NAUSEA/VOMITING; Start at 06:15; Stop 06/08/17 at 06:14; Status DC Acetaminophen (Tylenol) 650 mg PRN Q4HRS PRN PO FEVER; Start 06/07/17 at 06:15 ; Stop 06/08/17 at 06:14; Status DC Ferrous Sulfate (Feosol) 325 mg DAILY PO Last administered on 06/07/17 12:34 ; Start 06/07/17 at 10:00 Glipizide (Glucotrol) 2.5 mg DAILYWSUP PO ; Start 06/07/17 at 17:00; Stop at 17:00; Status DC Glipizide (Glucotrol) 5 mg DAILYWBKFT PO ; Start 06/08/17 at 09:30; Stop 06/08 at 09:30; Status DC Hydrochlorothiazide (Hydrodiuril) 25 mg DAILY PO Last administered on 12:34; Start 06/07/17 at 10:00 Lisinopril (Prinivil) 10 mg DAILY PO Last administered on 06/07/17 12:34; Start 06/07/17 at 10:00 Metformin HCl (Glucophage Xr) 500 mg DAILYWBKFT PO ; Start 06/07/17 at 10:00; Status UNV Non-Formulary Medication 1 tab DAILY PO ; Start 06/08/17 at 09:00; Status UNV Metoprolol Tartrate (Lopressor) 100 mg BID PO Last administered on 06/07/17 12:33; Start 06/07/17 at 10:00 Nifedipine (Procardia Xl) 30 mg DAILY PO Last administered on 06/07/17 12:33 ; Start 06/07/17 at 10:00 Sodium Chloride 1,000 ml @ 100 mls/hr Q10H IV Last administered on 06/07/17 12:41; Start 06/07/17 at 09:27; Stop 06/07/17 at 19:26; Status DC Enoxaparin Sodium (Lovenox 30mg Syringe) 30 mg Q24H SQ Last administered on 12:35; Start 06/07/17 at 09:45; Stop 06/09/17 at 11:16; Status DC Insulin Aspart (NovoLOG) 0-12 UNITS QIDACHS SQ Last administered on 06/07/17 11:30; Start 06/07/17 at 11:30 Glipizide (Glucotrol) 5 mg BIDBFRMEAL PO ; Start 06/08/17 at 08:00; Stop 06/08 at 08:52; Status DC Dextrose (Dextrose 50%-Water Syringe) 12.5 gm PRN Q15MIN PRN IV SEE COMMENTS Last administered on 06/08/17 20:42; Start 06/07/17 at 17:30 Dextrose (Dextrose 50%-Water Syringe) 25 gm STK-MED ONCE IV ; Start 06/07/17 at 17:24; Stop 06/07/17 at 17:25; Status DC Dextrose (Dextrose 50%-Water Syringe) 25 gm 1X ONCE IV Last administered on 17:10; Start 06/07/17 at 18:00; Stop 06/07/17 at 18:01; Status DC Dextrose (Dextrose 50%-Water Syringe) 25 gm 1X ONCE IV ; Start 06/07/17 at 18: 00; Stop 06/07/17 at 18:01; Status UNV Ceftriaxone Sodium (Rocephin) 1 gm Q24H IVP Last administered on 06/09/17 13: 07; Start 06/08/17 at 13:00 Pantoprazole Sodium (Protonix) 40 mg DAILYAC PO ; Start 06/08/17 at 16:00 Amino Acids/ Glycerin/ Electrolytes 1,000 ml @ 75 mls/hr [id number] IV Last administered on 06/10/17 01:10; Start 06/08/17 at 17:00 Active Scripts Active [Hydrocodone/Acetaminophen] 1 TAB Tablet 1 Tab PO PRN Q6HRS PRN Keflex (Cephalexin) 500 Mg Capsule 1,000 Mg PO BID Reported Hydrochlorothiazide Tablet (Hydrochlorothiazide) 25 Mg Tablet 1 Tab PO DAILY Zithromax (Azithromycin) 250 Mg Tablet 250 Mg PO DAILY 1 Days Nifedipine 20 Mg Capsule 30 Mg PO DAILY Benazepril Hcl 20 Mg Tablet 1 Tab PO DAILY Pain Reliever-Fever Swinging [employer] (Acetaminophen) 500 Mg/15 Ml Liquid 500 Mg PO Loperamide (Loperamide Hcl) 2 Mg Capsule 2 Mg PO Metformin Hcl Er (Metformin Hcl) 500 Mg Tab.er.24h 1 Tab PO Metoprolol Tartrate 100 Mg Tablet 100 Mg PO BID Lisinopril 10 Mg Tablet 10 Mg PO DAILY Glipizide 5 Mg Tablet 2.5 Mg PO QEVNG Glipizide 5 Mg Tablet 5 Mg PO DAILY Ferrous Sulfate 325 Mg Tablet 325 Mg PO DAILY Caltrate 600 + D Tablet (Calcium Carbonate/Vitamin D3) 1 Each Tablet 1 Each PO BID Fosamax (Alendronate Sodium) 70 Mg Tablet 70 Mg PO WEEKLY Vitals/I & O Vital Sign - Last 24 Hours 06/09/17 06/09/17 06/09/17 06/09/17 10:53 14:44 19:57 20:00 Temp 98.5 97.9 98.1 98.5 97.9 98.1 Pulse 66 74 69 Resp 16 16 16 B/P (MAP) 126/68 (87) 130/72 (91) 162/75 (104) Pulse Ox 93 96 93 O2 Delivery Room Air Room Air O2 Flow Rate 12/25/06/10/17 06/10/17 06/10/17 23:46 02:51 07:00 08:00 Temp 98.2 98.0 98.3 98.2 98.0 98.3 Pulse 82 82 78 Resp 16 16 16 B/P (MAP) 160/67 (98) 164/88 (113) 154/69 (97) Pulse Ox 98 99 97 O2 Delivery Room Air Room Air Nasal Cannula Room Air O2 Flow Rate 2.0 Intake and Output 06/09/17 06/09/17 06/10/17 15:00 23:00 07:00 Intake Total 125 ml Balance 125 ml LOPEZ PERSON III DO Jun 10, 2017 10:33
[2017-06-10 11:00] VITALS: BP 139/98
--- NOTE | 2017-06-10 11:14 | PDOC ---
Objective: Objective: Per RN - NPO w/ concerns of aspiration, no bleeding. Vital Signs: Vital Signs Date Time Temp Pulse Resp B/P (MAP) Pulse Ox O2 Delivery O2 Flow Rate FiO2 06/10/17 08:00 Room Air 06/10/17 07:00 98.3 78 16 154/69 (97) 97 2.0 98.3 Labs: Laboratory Tests Test 06/09/17 11:47 06/09/17 16:58 06/09/17 20:25 06/10/17 05:25 Glucose (Fingerstick) 93 mg/dL 106 mg/dL 128 mg/dL White Blood Count 7.1 x10^3/uL Red Blood Count 2.85 x10^6/uL Hemoglobin 9.4 g/dL Hematocrit 27.8 % Mean Corpuscular Volume 98 fL Mean Corpuscular Hemoglobin 33 pg Mean Corpuscular Hemoglobin Concent 34 g/dL Red Cell Distribution Width 13.3 % Platelet Count 142 x10^3/uL Neutrophils (%) (Auto) 78 % Lymphocytes (%) (Auto) 13 % Monocytes (%) (Auto) 8 % Eosinophils (%) (Auto) 1 % Basophils (%) (Auto) 1 % Neutrophils # (Auto) 5.5 x10^3uL Lymphocytes # (Auto) 0.9 x10^3/uL Monocytes # (Auto) 0.6 x10^3/uL Eosinophils # (Auto) 0.1 x10^3/uL Basophils # (Auto) 0.1 x10^3/uL Sodium Level 143 mmol/L Potassium Level 4.5 mmol/L Chloride Level 108 mmol/L Carbon Dioxide Level 25 mmol/L Anion Gap 10 Blood Urea Nitrogen 30 mg/dL Creatinine 1.2 mg/dL Estimated GFR (Cockcroft-Gault) 44.3 BUN/Creatinine Ratio 25 Glucose Level 182 mg/dL Calcium Level 8.7 mg/dL Total Bilirubin 0.2 mg/dL Aspartate Amino Transf (AST/SGOT) 22 U/L Alanine Aminotransferase (ALT/SGPT) 20 U/L Alkaline Phosphatase 88 U/L Total Protein 6.6 g/dL Albumin 2.4 g/dL Albumin/Globulin Ratio 0.6 Test 06/10/17 08:50 Glucose (Fingerstick) 160 mg/dL PE: GEN: NAD LUNGS: CTAB HEART: RRR ABD: S/ND/NT NEURO/PSYCH: babbling A/P: Coffee-ground emesis - resolved -on PPI, PPN Anemia -Hgb improved -- Change acid-home worker to IV since now NPO. SAVANNA ABRAHAM Jun 10, 2017 11:14
[2017-06-10] MEDS: FAMOTIDINE 20 MG/2 ML VIAL IVP SCH (13:00)
[2017-06-10] MEDS: cefTRIAXone IV Push 1 GM VIAL. IVP SCH (13:02)
[2017-06-10 15:55] VITALS: BP 152/72
[2017-06-10 20:05] VITALS: BP 151/83
[2017-06-10 23:18] VITALS: BP 151/73
[2017-06-11] MEDS: AMINO AC 3%/ELECTROLYTE/GLYCER 1,000 ML IV SCH (01:22)
[2017-06-11 03:01] VITALS: BP 152/65
[2017-06-11 07:00] VITALS: BP 102/62
[2017-06-11] MEDS: PANTOPRAZOLE 40 MG TABLET.DR. PO SCH (07:30)
[2017-06-11] MEDS: INSULIN ASPART 300 UNITS/3 ML INSULN.PEN SQ SCH ×2 (07:30→11:30)
[2017-06-11] MEDS: METOPROLOL TART IMMED RELEASE 50 MG TABLET. PO SCH (09:00)
[2017-06-11] MEDS: FERROUS SULFATE 325 MG TABLET. PO SCH (09:00)
[2017-06-11] MEDS: hydroCHLOROthiazide 25 MG TABLET PO SCH (09:00)
[2017-06-11] MEDS: LISINOPRIL 10 MG TABLET PO SCH (09:00)
[2017-06-11] MEDS: FAMOTIDINE 20 MG/2 ML VIAL IVP SCH (09:00)
[2017-06-11 09:15] LABS: ALBUMIN 2.3 g/dL (3.4-5.0); ALBUMIN/GLOBULIN RATIO 0.5 (1.0-1.7); CALCIUM 8.4 mg/dL (8.5-10.1); CREATININE 1.1 mg/dL (0.6-1.0); TOTAL BILIRUBIN 0.2 mg/dL (0.2-1.0); TOTAL PROTEIN 6.5 g/dL (6.4-8.2)
[2017-06-11 09:16] LABS: POTASSIUM 5.2 mmol/L (3.5-5.1)
[2017-06-11 09:17] LABS: BASO # 0.1 x10^3/uL (0.0-0.2); BASO % 1 % (0-3); EOS % 3 % (0-3); HEMATOCRIT 30.5 % (36.0-47.0); HEMOGLOBIN 9.8 g/dL (12.0-15.5); LYMPH # 0.9 x10^3/uL (1.0-4.8); LYMPH % 13 % (24-48); MEAN CORPUSCULAR HEMOGLOBIN 32 pg (25-35); MEAN CORPUSCULAR HGB CONC 32 g/dL (31-37); MEAN CORPUSCULAR VOLUME 100 fL (79-100); MONO % 6 % (0-9); NEUT % 76 % (31-73); PLATELET COUNT 102 x10^3/uL (140-400); RED BLOOD COUNT 3.06 x10^6/uL (3.50-5.40); RED CELL DISTRIBUTION WIDTH 13.5 % (11.5-14.5); WHITE BLOOD COUNT 6.9 x10^3/uL (4.0-11.0)
--- NOTE | 2017-06-11 10:57 | PDOC ---
PROGRESS NOTES Chief Complaint Chief Complaint Gi Bleed with Hematemesis, resolved Dehydration UTI ARF/CRF with tubular necrosis Sepsis, resolved Malnutrition Type 2 diabetes. Hypertension. Osteoporosis. Mental retardation. Cholecystectomy. History of Present Illness History of Present Illness Patient seen and examined. Resting comfortably, in no acute distress. Denies chest pain, shortness of breath, fevers/chills. Swallow study recommendations dysphagia 1 diet with honey thick liquids. Vitals Vitals Vital Signs Date Time Temp Pulse Resp B/P (MAP) Pulse Ox O2 Delivery O2 Flow Rate FiO2 06/11/17 07:00 98.7 69 20 102/62 (75) 97 Room Air 98.7 06/10/17 11:00 2.0 Physical Exam General: Other (Minimal responsiveness (Chronic)) Heart: Regular rate, Normal S1 Lungs: Clear Abdomen: Normal bowel sounds, Soft Extremities: No clubbing, No cyanosis Skin: No rashes, No breakdown Labs LABS Laboratory Tests Test 06/10/17 12:09 06/10/17 12:58 06/10/17 16:52 06/10/17 20:52 Glucose (Fingerstick) 142 mg/dL (70-99) 134 mg/dL (70-99) 241 mg/dL (70-99) 228 mg/dL (70-99) Test 06/11/17 07:30 06/11/17 08:30 Sodium Level 138 mmol/L (136-145) Potassium Level 5.2 mmol/L (3.5-5.1) Chloride Level 107 mmol/L (98-107) Carbon Dioxide Level 24 mmol/L (21-32) Anion Gap 7 (6-14) Blood Urea Nitrogen 36 mg/dL (7-20) Creatinine 1.1 mg/dL (0.6-1.0) Estimated GFR (Cockcroft-Gault) 49.0 BUN/Creatinine Ratio 33 (6-20) Glucose Level 165 mg/dL (70-99) Glucose (Fingerstick) 185 mg/dL (70-99) Calcium Level 8.4 mg/dL (8.5-10.1) Total Bilirubin 0.2 mg/dL (0.2-1.0) Aspartate Amino Transf (AST/SGOT) 20 U/L (15-37) Alanine Aminotransferase (ALT/SGPT) 16 U/L (14-59) Alkaline Phosphatase 89 U/L (46-116) Total Protein 6.5 g/dL (6.4-8.2) Albumin 2.3 g/dL (3.4-5.0) Albumin/Globulin Ratio 0.5 (1.0-1.7) White Blood Count 6.9 x10^3/uL (4.0-11.0) Red Blood Count 3.06 x10^6/uL (3.50-5.40) Hemoglobin 9.8 g/dL (12.0-15.5) Hematocrit 30.5 % (36.0-47.0) Mean Corpuscular Volume 100 fL (79-100) Mean Corpuscular Hemoglobin 32 pg (25-35) Mean Corpuscular Hemoglobin Concent 32 g/dL (31-37) Red Cell Distribution Width 13.5 % (11.5-14.5) Platelet Count 102 x10^3/uL (140-400) Neutrophils (%) (Auto) 76 % (31-73) Lymphocytes (%) (Auto) 13 % (24-48) Monocytes (%) (Auto) 6 % (0-9) Eosinophils (%) (Auto) 3 % (0-3) Basophils (%) (Auto) 1 % (0-3) Neutrophils # (Auto) 5.3 x10^3uL (1.8-7.7) Lymphocytes # (Auto) 0.9 x10^3/uL (1.0-4.8) Monocytes # (Auto) 0.4 x10^3/uL (0.0-1.1) Eosinophils # (Auto) 0.2 x10^3/uL (0.0-0.7) Basophils # (Auto) 0.1 x10^3/uL (0.0-0.2) Review of Systems Review of Systems Denies chest pain, shortness of breath, fevers/chills. Assessment and Plan Assessmemt and Plan Problems Medical Problems: (1) Dehydration Status: Acute (2) Hypernatremia Status: Acute (3) Urinary tract infection Status: Acute Gi Bleed with Hematemesis, resolved Dehydration UTI ARF/CRF with tubular necrosis Sepsis, resolved Malnutrition Type 2 diabetes. Hypertension. Osteoporosis. Mental retardation. Cholecystectomy PLAN: PPI Rocephin Continue home medications PT/OT Probable d/c today Problems: Comment Review of Relevant I have reviewed the following items negro (where applicable) has been applied. Labs Laboratory Tests Test 06/09/17 11:47 06/09/17 16:58 06/09/17 20:25 06/10/17 05:25 Glucose (Fingerstick) 93 mg/dL (70-99) 106 mg/dL (70-99) 128 mg/dL (70-99) White Blood Count 7.1 x10^3/uL (4.0-11.0) Red Blood Count 2.85 x10^6/uL (3.50-5.40) Hemoglobin 9.4 g/dL (12.0-15.5) Hematocrit 27.8 % (36.0-47.0) Mean Corpuscular Volume 98 fL (79-100) Mean Corpuscular Hemoglobin 33 pg (25-35) Mean Corpuscular Hemoglobin Concent 34 g/dL (31-37) Red Cell Distribution Width 13.3 % (11.5-14.5) Platelet Count 142 x10^3/uL (140-400) Neutrophils (%) (Auto) 78 % (31-73) Lymphocytes (%) (Auto) 13 % (24-48) Monocytes (%) (Auto) 8 % (0-9) Eosinophils (%) (Auto) 1 % (0-3) Basophils (%) (Auto) 1 % (0-3) Neutrophils # (Auto) 5.5 x10^3uL (1.8-7.7) Lymphocytes # (Auto) 0.9 x10^3/uL (1.0-4.8) Monocytes # (Auto) 0.6 x10^3/uL (0.0-1.1) Eosinophils # (Auto) 0.1 x10^3/uL (0.0-0.7) Basophils # (Auto) 0.1 x10^3/uL (0.0-0.2) Sodium Level 143 mmol/L (136-145) Potassium Level 4.5 mmol/L (3.5-5.1) Chloride Level 108 mmol/L (98-107) Carbon Dioxide Level 25 mmol/L (21-32) Anion Gap 10 (6-14) Blood Urea Nitrogen 30 mg/dL (7-20) Creatinine 1.2 mg/dL (0.6-1.0) Estimated GFR (Cockcroft-Gault) 44.3 BUN/Creatinine Ratio 25 (6-20) Glucose Level 182 mg/dL (70-99) Calcium Level 8.7 mg/dL (8.5-10.1) Total Bilirubin 0.2 mg/dL (0.2-1.0) Aspartate Amino Transf (AST/SGOT) 22 U/L (15-37) Alanine Aminotransferase (ALT/SGPT) 20 U/L (14-59) Alkaline Phosphatase 88 U/L (46-116) Total Protein 6.6 g/dL (6.4-8.2) Albumin 2.4 g/dL (3.4-5.0) Albumin/Globulin Ratio 0.6 (1.0-1.7) Test 06/10/17 08:50 06/10/17 12:09 06/10/17 12:58 06/10/17 16:52 Glucose (Fingerstick) 160 mg/dL (70-99) 142 mg/dL (70-99) 134 mg/dL (70-99) 241 mg/dL (70-99) Test 06/10/17 20:52 06/11/17 07:30 06/11/17 08:30 Glucose (Fingerstick) 228 mg/dL (70-99) 185 mg/dL (70-99) Sodium Level 138 mmol/L (136-145) Potassium Level 5.2 mmol/L (3.5-5.1) Chloride Level 107 mmol/L (98-107) Carbon Dioxide Level 24 mmol/L (21-32) Anion Gap 7 (6-14) Blood Urea Nitrogen 36 mg/dL (7-20) Creatinine 1.1 mg/dL (0.6-1.0) Estimated GFR (Cockcroft-Gault) 49.0 BUN/Creatinine Ratio 33 (6-20) Glucose Level 165 mg/dL (70-99) Calcium Level 8.4 mg/dL (8.5-10.1) Total Bilirubin 0.2 mg/dL (0.2-1.0) Aspartate Amino Transf (AST/SGOT) 20 U/L (15-37) Alanine Aminotransferase (ALT/SGPT) 16 U/L (14-59) Alkaline Phosphatase 89 U/L (46-116) Total Protein 6.5 g/dL (6.4-8.2) Albumin 2.3 g/dL (3.4-5.0) Albumin/Globulin Ratio 0.5 (1.0-1.7) White Blood Count 6.9 x10^3/uL (4.0-11.0) Red Blood Count 3.06 x10^6/uL (3.50-5.40) Hemoglobin 9.8 g/dL (12.0-15.5) Hematocrit 30.5 % (36.0-47.0) Mean Corpuscular Volume 100 fL (79-100) Mean Corpuscular Hemoglobin 32 pg (25-35) Mean Corpuscular Hemoglobin Concent 32 g/dL (31-37) Red Cell Distribution Width 13.5 % (11.5-14.5) Platelet Count 102 x10^3/uL (140-400) Neutrophils (%) (Auto) 76 % (31-73) Lymphocytes (%) (Auto) 13 % (24-48) Monocytes (%) (Auto) 6 % (0-9) Eosinophils (%) (Auto) 3 % (0-3) Basophils (%) (Auto) 1 % (0-3) Neutrophils # (Auto) 5.3 x10^3uL (1.8-7.7) Lymphocytes # (Auto) 0.9 x10^3/uL (1.0-4.8) Monocytes # (Auto) 0.4 x10^3/uL (0.0-1.1) Eosinophils # (Auto) 0.2 x10^3/uL (0.0-0.7) Basophils # (Auto) 0.1 x10^3/uL (0.0-0.2) Laboratory Tests Test 06/10/17 12:09 06/10/17 12:58 06/10/17 16:52 06/10/17 20:52 Glucose (Fingerstick) 142 mg/dL (70-99) 134 mg/dL (70-99) 241 mg/dL (70-99) 228 mg/dL (70-99) Test 06/11/17 07:30 06/11/17 08:30 Sodium Level 138 mmol/L (136-145) Potassium Level 5.2 mmol/L (3.5-5.1) Chloride Level 107 mmol/L (98-107) Carbon Dioxide Level 24 mmol/L (21-32) Anion Gap 7 (6-14) Blood Urea Nitrogen 36 mg/dL (7-20) Creatinine 1.1 mg/dL (0.6-1.0) Estimated GFR (Cockcroft-Gault) 49.0 BUN/Creatinine Ratio 33 (6-20) Glucose Level 165 mg/dL (70-99) Glucose (Fingerstick) 185 mg/dL (70-99) Calcium Level 8.4 mg/dL (8.5-10.1) Total Bilirubin 0.2 mg/dL (0.2-1.0) Aspartate Amino Transf (AST/SGOT) 20 U/L (15-37) Alanine Aminotransferase (ALT/SGPT) 16 U/L (14-59) Alkaline Phosphatase 89 U/L (46-116) Total Protein 6.5 g/dL (6.4-8.2) Albumin 2.3 g/dL (3.4-5.0) Albumin/Globulin Ratio 0.5 (1.0-1.7) White Blood Count 6.9 x10^3/uL (4.0-11.0) Red Blood Count 3.06 x10^6/uL (3.50-5.40) Hemoglobin 9.8 g/dL (12.0-15.5) Hematocrit 30.5 % (36.0-47.0) Mean Corpuscular Volume 100 fL (79-100) Mean Corpuscular Hemoglobin 32 pg (25-35) Mean Corpuscular Hemoglobin Concent 32 g/dL (31-37) Red Cell Distribution Width 13.5 % (11.5-14.5) Platelet Count 102 x10^3/uL (140-400) Neutrophils (%) (Auto) 76 % (31-73) Lymphocytes (%) (Auto) 13 % (24-48) Monocytes (%) (Auto) 6 % (0-9) Eosinophils (%) (Auto) 3 % (0-3) Basophils (%) (Auto) 1 % (0-3) Neutrophils # (Auto) 5.3 x10^3uL (1.8-7.7) Lymphocytes # (Auto) 0.9 x10^3/uL (1.0-4.8) Monocytes # (Auto) 0.4 x10^3/uL (0.0-1.1) Eosinophils # (Auto) 0.2 x10^3/uL (0.0-0.7) Basophils # (Auto) 0.1 x10^3/uL (0.0-0.2) Microbiology 06/07/17 Urine Culture - Final, Complete 06/07/17 Urine Culture Result 1 (ELVIS) - Final, Complete 06/07/17 Antimicrobic Susceptibility - Final, Complete Medications Current Medications Albuterol/ Ipratropium (Duoneb) 3 ml 1X ONCE NEB Last administered on 05:55; Start 06/07/17 at 06:00; Stop 06/07/17 at 06:01; Status DC Sodium Chloride 1,000 ml @ 1,000 mls/hr 1X ONCE IV Last administered on 06/07 06:00; Start 06/07/17 at 06:00; Stop 06/07/17 at 06:59; Status DC Ceftriaxone Sodium 50 ml @ 100 mls/hr 1X ONCE IV Last administered on 06:28; Start 06/07/17 at 06:30; Stop 06/07/17 at 06:59; Status DC Ondansetron HCl (Zofran) 4 mg PRN Q8HRS PRN IV NAUSEA/VOMITING; Start at 06:15; Stop 06/08/17 at 06:14; Status DC Acetaminophen (Tylenol) 650 mg PRN Q4HRS PRN PO FEVER; Start 06/07/17 at 06:15 ; Stop 06/08/17 at 06:14; Status DC Ferrous Sulfate (Feosol) 325 mg DAILY PO Last administered on 06/07/17 12:34 ; Start 06/07/17 at 10:00 Glipizide (Glucotrol) 2.5 mg DAILYWSUP PO ; Start 06/07/17 at 17:00; Stop at 17:00; Status DC Glipizide (Glucotrol) 5 mg DAILYWBKFT PO ; Start 06/08/17 at 09:30; Stop 06/08 at 09:30; Status DC Hydrochlorothiazide (Hydrodiuril) 25 mg DAILY PO Last administered on 12:34; Start 06/07/17 at 10:00 Lisinopril (Prinivil) 10 mg DAILY PO Last administered on 06/07/17 12:34; Start 06/07/17 at 10:00 Metformin HCl (Glucophage Xr) 500 mg DAILYWBKFT PO ; Start 06/07/17 at 10:00; Status UNV Non-Formulary Medication 1 tab DAILY PO ; Start 06/08/17 at 09:00; Status UNV Metoprolol Tartrate (Lopressor) 100 mg BID PO Last administered on 06/10/17 21:26; Start 06/07/17 at 10:00 Nifedipine (Procardia Xl) 30 mg DAILY PO Last administered on 06/07/17 12:33 ; Start 06/07/17 at 10:00 Sodium Chloride 1,000 ml @ 100 mls/hr Q10H IV Last administered on 06/07/17 12:41; Start 06/07/17 at 09:27; Stop 06/07/17 at 19:26; Status DC Enoxaparin Sodium (Lovenox 30mg Syringe) 30 mg Q24H SQ Last administered on 12:35; Start 06/07/17 at 09:45; Stop 06/09/17 at 11:16; Status DC Insulin Aspart (NovoLOG) 0-12 UNITS QIDACHS SQ Last administered on 06/10/17 21:35; Start 06/07/17 at 11:30 Glipizide (Glucotrol) 5 mg BIDBFRMEAL PO ; Start 06/08/17 at 08:00; Stop 06/08 at 08:52; Status DC Dextrose (Dextrose 50%-Water Syringe) 12.5 gm PRN Q15MIN PRN IV SEE COMMENTS Last administered on 06/08/17 20:42; Start 06/07/17 at 17:30 Dextrose (Dextrose 50%-Water Syringe) 25 gm STK-MED ONCE IV ; Start 06/07/17 at 17:24; Stop 06/07/17 at 17:25; Status DC Dextrose (Dextrose 50%-Water Syringe) 25 gm 1X ONCE IV Last administered on 17:10; Start 06/07/17 at 18:00; Stop 06/07/17 at 18:01; Status DC Dextrose (Dextrose 50%-Water Syringe) 25 gm 1X ONCE IV ; Start 06/07/17 at 18: 00; Stop 06/07/17 at 18:01; Status UNV Ceftriaxone Sodium (Rocephin) 1 gm Q24H IVP Last administered on 06/10/17 13: 02; Start 06/08/17 at 13:00 Pantoprazole Sodium (Protonix) 40 mg DAILYAC PO ; Start 06/08/17 at 16:00 Amino Acids/ Glycerin/ Electrolytes 1,000 ml @ 75 mls/hr [id number] IV Last administered on 06/11/17 01:22; Start 06/08/17 at 17:00 Famotidine (Pepcid Vial) 20 mg DAILY IVP Last administered on 06/10/17 13:00 ; Start 06/10/17 at 12:00 Active Scripts Active [Hydrocodone/Acetaminophen] 1 TAB Tablet 1 Tab PO PRN Q6HRS PRN Keflex (Cephalexin) 500 Mg Capsule 1,000 Mg PO BID Reported Hydrochlorothiazide Tablet (Hydrochlorothiazide) 25 Mg Tablet 1 Tab PO DAILY Zithromax (Azithromycin) 250 Mg Tablet 250 Mg PO DAILY 1 Days Nifedipine 20 Mg Capsule 30 Mg PO DAILY Benazepril Hcl 20 Mg Tablet 1 Tab PO DAILY Pain Reliever-Fever [employer] Tester Water (Acetaminophen) 500 Mg/15 Ml Liquid 500 Mg PO Loperamide (Loperamide Hcl) 2 Mg Capsule 2 Mg PO Metformin Hcl Er (Metformin Hcl) 500 Mg Tab.er.24h 1 Tab PO Metoprolol Tartrate 100 Mg Tablet 100 Mg PO BID Lisinopril 10 Mg Tablet 10 Mg PO DAILY Glipizide 5 Mg Tablet 2.5 Mg PO QEVNG Glipizide 5 Mg Tablet 5 Mg PO DAILY Ferrous Sulfate 325 Mg Tablet 325 Mg PO DAILY Caltrate 600 + D Tablet (Calcium Carbonate/Vitamin D3) 1 Each Tablet 1 Each PO BID Fosamax (Alendronate Sodium) 70 Mg Tablet 70 Mg PO WEEKLY Vitals/I & O Vital Sign - Last 24 Hours 06/10/17 06/10/17 06/10/17 06/10/17 11:00 15:55 20:00 20:05 Temp 98.1 97.8 97.8 98.1 97.8 97.8 Pulse 82 79 75 Resp 20 20 22 B/P (MAP) 139/98 (112) 152/72 (98) 151/83 (105) Pulse Ox 97 99 97 O2 Delivery Nasal Cannula Room Air Room Air Room Air O2 Flow Rate 2.0 06/10/17 06/10/17 06/11/17 06/11/17 21:26 23:18 03:01 07:00 Temp 97.5 97.6 98.7 97.5 97.6 98.7 Pulse 75 72 71 69 Resp 18 18 20 B/P (MAP) 151/83 151/73 (99) 152/65 (94) 102/62 (75) Pulse Ox 95 98 97 O2 Delivery Room Air Room Air Room Air Intake and Output 06/10/17 06/10/17 06/11/17 15:00 23:00 07:00 Intake Total 0 ml 1020 ml Balance 0 ml 1020 ml LOPEZ PERSON III DO Jun 11, 2017 10:57
[2017-06-11 11:00] VITALS: BP 106/63
--- NOTE | 2017-06-11 13:27 | PDOC ---
Subjective: Subjective: Seen earlier - sleeping. Objective: Objective: RN called - DC today, no bleeding, tolerating dysphagia diet. Chart indicates refusing meds. Vital Signs: Vital Signs Date Time Temp Pulse Resp B/P (MAP) Pulse Ox O2 Delivery O2 Flow Rate FiO2 06/11/17 11:00 99.5 75 18 106/63 (77) 96 Room Air 99.5 06/11/17 08:00 2.0 Labs: Laboratory Tests Test 06/10/17 16:52 06/10/17 20:52 06/11/17 07:30 06/11/17 11:43 Glucose (Fingerstick) 241 mg/dL (70-99) 228 mg/dL (70-99) 185 mg/dL (70-99) 135 mg/dL (70-99) Imaging: [employer] Bedside Swallow Eval Pt w/developmental delay, from half-way, now NPO d/t concern for aspiration. Pt is edentulous. Appeared to have incomplete mastication of soft solid and impulsive intake w/pt feeding herself multiple boluses w/o swallow. Pt also w/ impulsive intake of thin liquids and overt s/s aspiration on 2 of 3 trials via cup. Suspect impaired oral control c/t s/s aspiration w/thin. IMPRESSIONS: Oropharyngeal delay w/overt s/s aspiration w/thin liquids. Impulsive intake of solids, along w/incomplete mastication d/t edentulous status , increases risk of aspiration. Pt appeared safe w/puree and honey thick liquids. Prognosis guarded for upgrade, may need to con't this diet at discharge. RECOMMENDATIONS: Dysphagia I w/honey thick liquids. Provide thick liquids. Assist pt feeding herself. Precautions posted. Diet orders entered. Meds crushed in puree if ok. DW FABIÁN Helms. PE: GEN: NAD NEURO/PSYCH: asleep A/P: Coffee-ground emesis - resolved Anemia - Hgb stable Dysphagia - tolerating diet per RN CKD -- DC per primary, diet per [employer]. SAVANNA ABRAHAM Jun 11, 2017 13:27
[2017-06-11] MEDS ORDERED: LACTOBACILLUS RHAMNOSUS GG 1 CAPSULE. PO SCH (21:00)
--- NOTE | 2017-06-12 15:44 | DS ---
DATE OF DISCHARGE: 06/11/2017 ADMISSION DIAGNOSES: 1. Urinary tract infection. 2. Dehydration. 3. Hyponatremia. DISCHARGE DIAGNOSES: 1. Resolving urinary tract infection. 2. Resolving dehydration. 3. Resolving hyponatremia. 4. Resolving metabolic encephalopathy. HOSPITAL COURSE: The patient is a pleasant 72-year-old female who presented with metabolic encephalopathy with urinary tract, dehydration and hyponatremia. She was admitted. We gave her IV antibiotics and fluids over the next few days. She returned to baseline. [facility] DISPOSITION: residential. ACTIVITY: As tolerated. DIET: Low sodium. MEDICATIONS: Please see the MRAD. TOTAL TIME: 37 minutes. LOPEZ PERSON DO DR: [email or web address] JOB#: [id number] / [id number]
== END 2017-06-11 15:34 | DRG 871 ==
LOC: ER 03:07 → 6 SOUTH 06:00
PROVIDERS: ADMIT Internal Medicine; ATTEND Internal Medicine
DX: A41.9 Sepsis, unspecified organism (principal); N17.0 Acute kidney failure with tubular necrosis; G93.41 Metabolic encephalopathy; E44.0 Moderate protein-calorie malnutrition; K92.0 Hematemesis; E87.0 Hyperosmolality and hypernatremia; N39.0 Urinary tract infection, site not specified; E87.1 Hypo-osmolality and hyponatremia; D64.9 Anemia, unspecified; E11.22 Type 2 diabetes mellitus with diabetic chronic kidney disease; E11.43 Type 2 diabetes mellitus with diabetic autonomic (poly)neuropathy; E86.0 Dehydration; F03.90 Unspecified dementia, unspecified severity, without behavioral disturbance, psychotic disturbance, mood disturbance, and anxiety; F79 Unspecified intellectual disabilities; I12.9 Hypertensive chronic kidney disease with stage 1 through stage 4 chronic kidney disease, or unspecified chronic kidney disease; K21.9 Gastro-esophageal reflux disease without esophagitis; Z96.649 Presence of unspecified artificial hip joint; K27.9 Peptic ulcer, site unspecified, unspecified as acute or chronic, without hemorrhage or perforation; M19.90 Unspecified osteoarthritis, unspecified site; K31.84 Gastroparesis; M81.0 Age-related osteoporosis without current pathological fracture; N18.9 Chronic kidney disease, unspecified; R13.10 Dysphagia, unspecified; Z90.49 Acquired absence of other specified parts of digestive tract
CPT/HCPCS: 36415; 71010; 74000; 80048; 80053; 81001; 82962; 83690; 84484; 85007; 85025; 85610; 87086; 87186; 87641; 87804; 93005; 94640; 96365; J0690; J0696; J1650; J1815; J7030; J7042; J7620; S0028; 92610; 99285-25

== ENCOUNTER 2017-11-30 16:06 | Emergency (ER) | payer MEDICARE, OTHER ==
[2017-11-30 16:18] LABS: POC GLUCOSE 99 mg/dL (70-99)
[2017-11-30 16:19] LABS: ADD MAN DIFF? NO
[2017-11-30 16:22] LABS: BASO # 0.1 x10^3/uL (0.0-0.2); BASO % 1 % (0-3); EOS % 0 % (0-3); HEMATOCRIT 33.1 % (36.0-47.0); HEMOGLOBIN 11.2 g/dL (12.0-15.5); LYMPH # 0.9 x10^3/uL (1.0-4.8); LYMPH % 13 % (24-48); MEAN CORPUSCULAR HEMOGLOBIN 33 pg (25-35); MEAN CORPUSCULAR HGB CONC 34 g/dL (31-37); MEAN CORPUSCULAR VOLUME 98 fL (79-100); MONO # 0.4 x10^3/uL (0.0-1.1); MONO % 6 % (0-9); NEUT # 5.8 x10^3uL (1.8-7.7); NEUT % 80 % (31-73); PLATELET COUNT 263 x10^3/uL (140-400); RED BLOOD COUNT 3.38 x10^6/uL (3.50-5.40); RED CELL DISTRIBUTION WIDTH 14.1 % (11.5-14.5); WHITE BLOOD COUNT 7.2 x10^3/uL (4.0-11.0)
[2017-11-30 16:30] LABS: ANION GAP 7 (6-14); BLOOD UREA NITROGEN 61 mg/dL (7-20); BUN/CREATININE RATIO 44 (6-20); CALCIUM 9.9 mg/dL (8.5-10.1); CARBON DIOXIDE 29 mmol/L (21-32); CHLORIDE 105 mmol/L (98-107); CREATININE 1.4 mg/dL (0.6-1.0); GFR 37.1; GLUCOSE 81 mg/dL (70-99); POTASSIUM 4.1 mmol/L (3.5-5.1); SODIUM 141 mmol/L (136-145)
[2017-11-30 16:36] LABS: ALBUMIN/GLOBULIN RATIO 0.6 (1.0-1.7); ALK PHOS 92 U/L (46-116); ALT (SGPT) 23 U/L (14-59); AST (SGOT) 21 U/L (15-37); TOTAL BILIRUBIN 0.2 mg/dL (0.2-1.0); TOTAL PROTEIN 7.9 g/dL (6.4-8.2)
[2017-11-30 16:38] LABS: TROPONINI < 0.017 ng/mL (0.000-0.055)
[2017-11-30] MEDS: IV NORMAL SALINE 1000ML BAG 1,000 ML IV (17:00)
[2017-11-30 17:27] LABS: POC GLUCOSE 173 mg/dL (70-99)
[2017-11-30 17:41] LABS: BILIRUBIN,URINE NEGATIVE (NEG); CLARITY,URINE CLEAR; COLOR,URINE YELLOW; GLUCOSE,URINE NEGATIVE (NEG); NITRITE,URINE NEGATIVE (NEG); PROTEIN,URINE NEGATIVE (NEG-TRACE); UROBILINOGEN,URINE 0.2 mg/dL (0.2 mg/dL)
[2017-11-30 17:52] LABS: BACTERIA,URINE 0 /HPF (0-FEW); RBC,URINE 0 /HPF (0-2); SQUAMOUS EPITHELIAL CELL,UR FEW /LPF; WBC,URINE 0 /HPF (0-4)
== END 2017-11-30 18:07 | disposition home or self-care (01) ==
LOC: ER 18:07
DX: E11.649 Type 2 diabetes mellitus with hypoglycemia without coma (principal); I10 Essential (primary) hypertension; E78.00 Pure hypercholesterolemia, unspecified; Z90.710 Acquired absence of both cervix and uterus; Z90.49 Acquired absence of other specified parts of digestive tract
CPT/HCPCS: 36415; 71045; 80053; 81001; 82962; 84484; 85025; 93005; 96360; 99285-25; J7030; P9612

== ENCOUNTER → 2018-01-14 | Outpatient (CLI) | payer MEDICARE, OTHER ==
[2017-11-30 17:45] VITALS: BP 119/64
[~2018-01-14] MED LIST changes: +AZIT250T PO; +BENA20TA4 PO; -FERR-26 PO; +FERR325T14 PO; +HYDR25TA9 PO; +METO10SO PO; +METO10TA81 PO; +NIFE20CA PO; +NIFE30TA15 PO
== END | disposition home or self-care (01) ==
LOC: PMGWOUND 11:22
PROVIDERS: ATTEND Preventive Medicine Undersea and Hyperbaric Medicine
DX: E11.622 Type 2 diabetes mellitus with other skin ulcer (principal); L97.121 Non-pressure chronic ulcer of left thigh limited to breakdown of skin; I11.0 Hypertensive heart disease with heart failure; I50.9 Heart failure, unspecified; M81.0 Age-related osteoporosis without current pathological fracture; E78.00 Pure hypercholesterolemia, unspecified; Z90.49 Acquired absence of other specified parts of digestive tract; Z90.710 Acquired absence of both cervix and uterus
CPT/HCPCS: 99202; 99214; G0463

== ENCOUNTER → 2018-01-28 | Outpatient (CLI) | payer MEDICARE, OTHER ==
[2017-11-30 17:45] VITALS: BP 119/64
== END | disposition home or self-care (01) ==
LOC: PMGWOUND 09:46
PROVIDERS: ATTEND Preventive Medicine Undersea and Hyperbaric Medicine
DX: E11.622 Type 2 diabetes mellitus with other skin ulcer (principal); L97.928 Non-pressure chronic ulcer of unspecified part of left lower leg with other specified severity; I11.0 Hypertensive heart disease with heart failure; I50.9 Heart failure, unspecified; E78.00 Pure hypercholesterolemia, unspecified; M81.0 Age-related osteoporosis without current pathological fracture; N13.39 Other hydronephrosis; Z90.710 Acquired absence of both cervix and uterus; Z90.49 Acquired absence of other specified parts of digestive tract
CPT/HCPCS: 99212